=== PATIENT | female | born 1960 | race Caucasian/White ===

== ENCOUNTER 2020-05-06 10:03 | Emergency (ER) | payer BC ==
[~2020-05-06] VITALS: Ht 160 cm; Wt 74.6 kg
[2020-05-06] MEDS ORDERED: SODIUM CHLORIDE 0.9% 1000ML 1,000 ML IV STA ×2 (10:32)
[2020-05-06] MEDS ORDERED: ONDANSETRON HCL INJ 2MG/ML 2ML 2 MG/ML VIAL IV STA (10:32)
[2020-05-06] MEDS ORDERED: SODIUM CHLORIDE FLUSH 10 ML SYR INJ PRN (10:45)
[2020-05-06] MEDS ORDERED: SODIUM CHLORIDE 0.9% 1000ML 2,000 ML ONE (10:49)
--- OUTSIDE RECORDS SUMMARY | 2020-05-06 11:02 | XMS REPORT | Clinical Summary ---
Author Author [facility] Organization [facility] Address Unknown Phone Unavailable Care Team Providers Care Apple Sorter Name Role Phone NicolasaSariah Jarvis PCP Unavailable Allergies Comments Active Allergy Reactions Severity Noted Date Cinnamon GI 12/25/2018 Intolerance Heel pain Ciprofloxacin 09/23/2017 Severe Itching Hydrocodone-Acetaminophen Itching Medium 10/04 fever Nitrofurantoin Other (See High 09/23/2017 Monohyd/M-Cryst Comments) Morphine Hives, 09/23/2017 Itching, GI Intolerance Medications End Date Status Medication Sig Dispensed Refills Start Date Active levothyroxine (SYNTHROID, Take 25 mcg 0 LEVOXYL) 25 mcg tablet by mouth every morning. Pt takes [place] thyroid also Active PROGESTERONE, BULK, MISC Apply 0 topically daily. Testosterone 5mg- Progesterone 25mg/ml cream Active estradiol (VIVELLE-DOT) Place 1 patch 0 0.1 mg/24 hr on the skin 2 (two) times a week. Sat-Tues Active acetaminophen (TYLENOL) Take 650 mg 0 325 MG tablet by mouth every 6 (six) hours as needed for fever. Active dexlansoprazole Take 60 mg by 0 (DEXILANT) 60 mg capsule mouth daily. Active escitalopram (LEXAPRO) 10 Take 10 mg by 0 MG tablet mouth daily. Active mometasone (NASONEX) 50 2 sprays into 0 mcg/actuation nasal spray each nostril daily. Active ondansetron (ZOFRAN) 8 MG Take 8 mg by 0 tablet mouth every 8 (eight) hours as needed for nausea or vomiting. Active metFORMIN XR Take 500 mg 0 (GLUCOPHAGE-XR) 500 mg 24 by mouth hr tablet daily with breakfast. Active thyroid, pork, (ARMOUR Take 1 tablet 0 THYROID) 15 mg tablet by mouth daily. Pt takes levothyroxine also 08/10/2019 Discontinued (Med List Clean up) thyroid, pork, Take 16.25 mg 0 (NATURE-THROID) 16.25 mg by mouth tablet daily. 08/10/2019 Discontinued (Med List Clean up) diclofenac (VOLTAREN) 1 % APPLY 100 g 0 gel TOPICALLY 8 FOUR TIMES DAILY 08/10/2019 Discontinued (Med List Clean up) pantoprazole (PROTONIX) TAKE ONE 90 tablet 0 40 MG EC tablet TABLET BY 9 MOUTH DAILY 08/10/2019 Discontinued (Med List Clean up) metFORMIN (GLUCOPHAGE) Take 500 mg 0 500 mg tablet by mouth 2 (two) times a day with meals. Active Problems Problem Noted Date Chest pain 08/10/2019 Bilateral hip pain 01/01/2018 Spinal stenosis of lumbar region without neurogenic c laudication 11/26/2017 Degenerative tear of left medial meniscus 01/21/2017 Trochanteric bursitis of right hip 01/21/2017 Meniere disease GERD (gastroesophageal reflux disease) Disease of thyroid gland Diabetes mellitus Overview: pre Encounters Care Team Description Date Type Specialty Matt Villegas MD Bavare, MD Aamir Domingo, Bob Torres MD Chest pain, unspecified type (Primary Dx ); Hypertension, unspecified type; Elevated brain natriuretic peptide (BNP) level; Hx of atrial fibrillation, no current medication 08/10/2019 Emergency General Internal [facility] - 08/12/2019 Jay Delacruz DO Atrial fibrillation, unspecified type (H CC) (Primary Dx) 08/09/2019 Emergency Emergency Medicine - 08/10/2019 after 05/06/2019 Family History Medical History Relation Name Comments Cancer Brother kidney Diabetes Brother Atrial fibrillation Father Diabetes Mother Heart disease Mother Cancer Sister kidney Heart disease Sister Relation Name Status Comments Brother Father Alive Mother Sister Alive Social History Date Tobacco Use Types Packs/Day Years Used Never Smoker Smokeless Tobacco: Never Used Drinks/Week oz/Week Comments Alcohol Use social Yes Sex Assigned at Date Recorded Not on file Industry Job Start Date Occupation Not on file Not on file Not on file Travel End Travel History Travel Start No recent travel history available. Last Filed Vital Signs Reading Time Taken Comments Vital Sign 125/61 08/12/2019 11:59 AM FURNITURE DETAILER Blood Pressure 53 08/12/2019 11:59 AM FURNITURE DETAILER Pulse 36.4 C (97.5 F) 08/12/2019 11:59 AM FURNITURE DETAILER Temperature 16 08/12/2019 11:59 AM FURNITURE DETAILER Respiratory Rate 97% 08/12/2019 11:59 AM FURNITURE DETAILER Oxygen Saturation - - Inhaled Oxygen Concentration 87.5 kg (193 lb) 08/10/2019 12:46 PM FURNITURE DETAILER Weight 160 cm (5' 3") 08/10/2019 12:46 PM FURNITURE DETAILER Height 34.19 08/10/2019 12:46 PM FURNITURE DETAILER Body Mass Index Plan of Treatment Health Maintenance Due Date Last Done Comments DIABETIC RETINAL EYE EXAM 1960 DIABETIC FOOT EXAM 1970 URINE MICROALBUMIN 1970 CERVICAL CANCER SCREENING 1981 BREAST CANCER SCREENING 2010 COLONOSCOPY SCREENING 2010 SHINGLES VACCINES (#1) 2010 INFLUENZA VACCINE 06/02/2020 Procedures Comments Procedure Name Priority Date/Time Associated Diag nosis CT ANGIOGRAM PE CHEST STAT 08/12/2019 2:16 PM FURNITURE DETAILER US CAROTID DUPLEX STAT 08/12/2019 BILATERAL 2:00 PM FURNITURE DETAILER POC GLUCOSE Routine 08/12/2019 11:59 AM FURNITURE DETAILER D-DIMER STAT 08/12/2019 10:46 AM FURNITURE DETAILER POC GLUCOSE Routine 08/11/2019 4:03 PM FURNITURE DETAILER POC GLUCOSE Routine 08/11/2019 10:59 AM FURNITURE DETAILER TTE COMPLETE, WO Routine 08/11/2019 CONTRAST, W DOPPLER 8:22 AM FURNITURE DETAILER ([id number]) POC GLUCOSE Routine 08/11/2019 6:36 AM FURNITURE DETAILER HEMOGLOBIN A1C Routine 08/11/2019 5:44 AM FURNITURE DETAILER MAGNESIUM LEVEL Routine 08/11/2019 5:44 AM FURNITURE DETAILER LIPID PANEL Routine 08/11/2019 5:44 AM FURNITURE DETAILER ESTIMATED GFR Routine 08/11/2019 5:44 AM FURNITURE DETAILER BASIC METABOLIC PANEL Routine 08/11/2019 5:44 AM FURNITURE DETAILER HC COMPLETE BLD COUNT Routine 08/11/2019 W/AUTO DIFF 5:44 AM FURNITURE DETAILER B NATRIURETIC PEPTIDE Routine 08/11/2019 5:44 AM FURNITURE DETAILER THYROID STIMULATING Routine 08/11/2019 HORMONE 5:44 AM FURNITURE DETAILER POC GLUCOSE Routine 08/10/2019 9:39 PM FURNITURE DETAILER TROPONIN Timed 08/10/2019 9:12 PM FURNITURE DETAILER POC GLUCOSE Routine 08/10/2019 6:18 PM FURNITURE DETAILER PARTIAL THROMBOPLASTIN STAT 08/10/2019 TIME (PTT) 4:18 PM FURNITURE DETAILER PROTHROMBIN TIME WITH INR STAT 08/10/2019 4:18 PM FURNITURE DETAILER TROPONIN Timed 08/10/2019 3:54 PM FURNITURE DETAILER XR CHEST 2 VW STAT 08/10/2019 2:53 PM FURNITURE DETAILER ECG ED PRELIMINARY Routine 08/10/2019 INTERPRETATION 2:04 PM FURNITURE DETAILER LIPASE LEVEL STAT 08/10/2019 1:59 PM FURNITURE DETAILER ESTIMATED GFR STAT 08/10/2019 1:59 PM FURNITURE DETAILER B NATRIURETIC PEPTIDE STAT 08/10/2019 1:59 PM FURNITURE DETAILER TROPONIN STAT 08/10/2019 1:59 PM FURNITURE DETAILER COMPREHENSIVE METABOLIC STAT 08/10/2019 PANEL 1:59 PM FURNITURE DETAILER HC COMPLETE BLD COUNT STAT 08/10/2019 W/AUTO DIFF 1:59 PM FURNITURE DETAILER ECG 12-LEAD STAT 08/10/2019 12:50 PM FURNITURE DETAILER T3, FREE STAT 08/10/2019 1:15 AM FURNITURE DETAILER TROPONIN Timed 08/10/2019 1:11 AM FURNITURE DETAILER XR CHEST 1 VW PORTABLE STAT 08/09/2019 11:23 PM FURNITURE DETAILER THYROID STIMULATING STAT 08/09/2019 HORMONE 10:37 PM FURNITURE DETAILER T4, FREE STAT 08/09/2019 10:37 PM FURNITURE DETAILER T4 STAT 08/09/2019 10:37 PM FURNITURE DETAILER T3 STAT 08/09/2019 10:37 PM FURNITURE DETAILER ESTIMATED GFR STAT 08/09/2019 10:37 PM FURNITURE DETAILER B NATRIURETIC PEPTIDE STAT 08/09/2019 10:37 PM FURNITURE DETAILER TROPONIN STAT 08/09/2019 10:37 PM FURNITURE DETAILER HC COMPLETE BLD COUNT STAT 08/09/2019 W/AUTO DIFF 10:37 PM FURNITURE DETAILER COMPREHENSIVE METABOLIC STAT 08/09/2019 PANEL 10:37 PM FURNITURE DETAILER ECG 12-LEAD STAT 08/09/2019 10:32 PM FURNITURE DETAILER ECG ED PRELIMINARY Routine 08/09/2019 INTERPRETATION 10:29 PM FURNITURE DETAILER after 05/06/2019 Results * CT Angiogram Pe Chest (08/12/2019 2:16 PM FURNITURE DETAILER) Specimen Narrative Performed At EXAMINATION: [facility] CT ANGIOGRAM PE CHEST CLINICAL HISTORY: elevated d-dimer TECHNIQUE: CT angiographic images of the chest wer e obtained during intravenous administration of iodinated contrast. C omputerized reformatted images and 3-D MIP images were also obtained and archi ilir (CT pulmonary embolus protocol). Approximately 100 cc of Visipaque [address] scan performed using radiation d ose reduction techniques. Technical factors are evaluated and adjusted to e nsure appropriate moderation of exposure. Automated dose management technology is applied to adjust the radiation dose to minimize expose while achieving a diagnostic quality image. COMPARISON: None. FINDINGS: The main pulmonary artery, right pulmon samanta artery and left pulmonary artery as well as their visualized segmental and subsegmental branches demonstrate no evidence of pulmonary embolism. The pul monary arteries are normal in caliber. There is no evidence of aortic aneurysm or dissection. No mediastinum, hilar or axillary patho logic adenopathy is seen. The heart is normal in caliber. No elissa cardial effusion is seen. No consolidation or pleural effusion is seen. There is no evidence of pneumothorax. No pulmonary nodule or ma ss is present. Bilateral renal cysts are noted. Small amount of gallbladder sludge is noted. The image portion of the abdomen viscer a is otherwise unremarkable. IMPRESSION: No CTA evidence of pulmonary embolism. No CTA evidence of aortic aneurysm or d issection. No CT evidence of acute cardiopulmonary process or pneumonia. [id number] Procedure Note Hm Interface, Radiology Results Incoming - 08/12/2019 2:38 PM FURNITURE DETAILER EXAMINATION: CT ANGIOGRAM PE CHEST CLINICAL HISTORY: elevated d-dimer TECHNIQUE: CT angiographic images of the chest were obtained during intravenous administration of iodinated contrast. Computerized reformatted images and 3-D MIP images were also obtained and archived (CT pulmonary embolus protocol). Approximately 100 cc of Visipaque [address] scan performed using radiation dose reduction techniques. Technical factors are evaluated and adjusted to ensure appropriate moderation of exposure. Automated dose management technology is applied to adjust the radiation dose to minimize expose while achieving a diagnostic quality image. COMPARISON: None. FINDINGS: The main pulmonary artery, right pulmonary artery and left pulmonary artery as well as their visualized segmental and subsegmental branches demonstrate no evidence of pulmonary embolism. The pulmonary arteries are normal in caliber. There is no evidence of aortic aneurysm or dissection. No mediastinum, hilar or axillary pathologic adenopathy is seen. The heart is normal in caliber. No pericardial effusion is seen. No consolidation or pleural effusion is seen. There is no evidence of pneumothorax. No pulmonary nodule or mass is present. Bilateral renal cysts are noted. Small amount of gallbladder sludge is noted. The image portion of the abdomen viscera is otherwise unremarkable. IMPRESSION: No CTA evidence of pulmonary embolism. No CTA evidence of aortic aneurysm or dissection. No CT evidence of acute cardiopulmonary process or pneumonia. [id number] Performing Organization Address City/State/Zipcode Ph one Number [facility] [address] [place] [address] * Us carotid duplex (08/12/2019 2:00 PM FURNITURE DETAILER) Specimen Narrative Performed At Examination: US CAROTID DUPLEX BILATERAL [facility] CLINICAL HISTORY: syncope TECHNIQUE: Examination includes full du plex Doppler scan (real-time B mode grayscale, Doppler spectral analysis, D oppler color flow imaging) of the common carotid, internal carotid, external car otid, and vertebral arteries. Velocity parameters are based upon studies using distal internal kim tid artery diameter as a denominator for stenosis calculation. COMPARISON: None. IMPRESSION: 1.Mild bilateral intimal wall thickenin g of the visualized carotid arteries. No hemodynamically significant stenosis wi thin either internal carotid artery, with the peak systolic velocities within the right and left internal carotid arteries measuring 83.6 cm/s and 86.6 cm/s, respectively. The peak systolic velocities within the right and left common carotid arteries measure 95.1 cm/s and 118.8 cm/s, respectively. 2.The right and left vertebral arteries are patent and demonstrate normal antegrade flow. [id number] Procedure Note Interface, Radiology Results Incoming - 08/12/2019 2:10 PM FURNITURE DETAILER Examination: US CAROTID DUPLEX BILATERAL CLINICAL HISTORY: syncope TECHNIQUE: Examination includes full duplex Doppler scan (real-time B mode grayscale, Doppler spectral analysis, Doppler color flow imaging) of the common carotid, internal carotid, external carotid, and vertebral arteries. Velocity parameters are based upon studies using distal internal carotid artery diameter as a denominator for stenosis calculation. COMPARISON: None. IMPRESSION: 1.Mild bilateral intimal wall thickening of the visualized carotid arteries. No hemodynamically significant stenosis within either internal carotid artery, with the peak systolic velocities within the right and left internal carotid arteries measuring 83.6 cm/s and 86.6 cm/s, respectively. T he peak systolic velocities within the right and left common carotid arteries measure 95.1 cm/s and 118.8 cm/s, respectively. 2.The right and left vertebral arteries are patent and demonstrate normal antegrade flow. [facility]-[id number] Performing Organization Address City/State/Zipcode Ph one Number [facility] [address] [place] [address] * POC glucose (08/12/2019 11:59 AM FURNITURE DETAILER) Only the most recent of 6 results within the time period is included. POC glucose 92 65 - 100 mg/dL [facility] Specimen Performing Organization Address City/State/Zipcode Ph one Number [facility] [address] [place] [address]. [place] [address] PATHOLOGY AND GENOMIC MEDICINE [facility] [address] [place] [address] HOSPITAL * D-dimer (08/12/2019 10:46 AM FURNITURE DETAILER) Pathologist [facility] D-dimer 1.01 (H) 0.00 - 0.40 ug/mL [address] [facility] Comment: FEU CATHOLIC Units are ug/ml Fibrinogen [facility]. [facility] When combined with low clinical probability, D-dimer results of less than 0.5 ug/ml FEU have a good negative predictive value in excluding PE or DVT. For D-dimer results greater than 0.5 ug/ml FEU further testing is indicated if PE or DVT is suspected clinically. Elevated D-dimer results have been reported in DVT, PE, and DIC cases and may indicate the presence of a clot. D-dimer results may be elevated due to old age, , inflammatory diseases, trauma, post-operative states, sepsis, and malignancies. Specimen Blood Performing Organization Address City/State/Zipcode Ph one Number [facility] [address] [place] [address] PATHOLOGY AND GENOMIC MEDICINE [facility] [address] * Echocardiogram complete w contrast and 3D if needed (08/11/2019 8:22 AM FURNITURE DETAILER) Velocity Ratio 0.74 m/s [facility] (V1/V2) IVS,d 0.98 cm SYNGO EF 67.75 % [facility] Ascending aorta 3.45 cm [facility] LVPWD,d 0.99 cm [facility] AoV Mean PG 6.00 mmHg [facility] AV LVOT peak 6.37 mmHg HM [facility] gradient MV valve area p 3.43 cm2 [facility] 1/2 method PV Pk Grad 2.69 mmHg [facility] E/A ratio 0.97 [facility] E wave 194.54 msec [facility] decelartion time IVRT 77.07 msec [facility] LVOT Diam,S 2.11 cm [facility] LVOT area 3.49 cm2 [facility] LVOT Vmax 1.27 m/s [facility] LVOT VTI 0.31 m HM [facility] AoV Peak PG 11.62 mmHg [facility] MV Peak E Kofi 0.72 m/s [facility] MV stenosis 64.17 ms HM [facility] pressure 1/2 time MV Peak A Kofi 0.74 m/s [facility] BSA 1.93 m2 [facility] Ao Root 3.00 cm HM [facility] Diameter AoV Area, Vmax 2.58 cm2 [facility] AoV Area, VTI 2.87 cm2 [facility] AoV Vmax 1.71 m/s [facility] BSA [place] 2.06 m2 [facility] BSA [place] 2.04 m2 [facility] IVS/LVPW,2D 0.99 [facility] Left Atrium 4.66 cm [facility] Dimension Anterior LV,d 5.09 cm HM [facility] LV,s 3.16 cm [facility] PV VMAX 0.82 m/s [facility] RVSP (TR) 43.02 mmHg [facility] TR Vpeak 2.87 mm/s [facility] BMI 35.07 kg/m2 [facility] MV E A ratio 0.93 [facility] TR pk grad 31.89 mmHg HM [facility] AoV area i VTI 1.49 cm2/m2 [facility] BSA [place] RVSP 43.02 mmHg HM [facility] Ao Root 3.00 cm [facility] Diameter LV SYS VOL 39.73 ml [facility] LV STUBBS VOL 123.18 ml [facility] LA area s A4C 23.02 cm2 [facility] LA Vol MOD A4C 75.26 ml [facility] LV SI Teich 2D 43.34 ml/m2 [facility] LV SV Teich 2D 83.45 ml [facility] LV Vol s Teich 39.73 ml [facility] PSAX LVOT SI 56.99 ml/m2 [facility] AoV Vmn 1.14 [facility] IVS s 2D 1.50 [facility] LV FS Cube 2D 37.90 [facility] LV FS Teich 2D 37.90 [facility] AoV VTI 0.39 m [facility] LV EF,2D 76.06 % [facility] MV AE ratio 1.08 [facility] LVOT Vmn 0.90 [facility] Pt Size 160.02 [facility] Pt Wt 89.81 [facility] Aov area Vmn 2.86 cm2 [facility] LA A_P score P 3.10 [facility] LVOT mean grad 3.69 mmHg [facility] MAX Pred HR 161.26 [facility] 85 of MPHR 137.07 HM [facility] AoV area I VMN 1.49 cm2/m2 [facility] bsa Calc MPHR 161.26 bpm [facility] IVS pct thck 53.70 % [facility] PLAX LV SI Cube 2D 52.05 ml/m2 [facility] LV SV Cube 2D 100.22 ml [facility] LV vol d cube 131.78 ml [facility] 2D LV vol s cube 31.55 ml [facility] 2D LVPW pct thck 41.63 % [facility] PLAX LVPW s PLAX 1.40 cm [facility] MV Decel slope 3.69 m/s2 [facility] Pred Exer Dur 8.04 [facility] R1 Pred METS R1 7.06 [facility] Specimen Narrative Performed At [facility] Left ventricular systolic function i s normal. Left Ventricular ejection fraction i s 55 - 60%. Left atrium size is mildly dilated. Mildly elevated pulmonary artery sys tolic pressure. RSVP 43 Performing Organization Address City/[facility] Ph one Number [facility] [address] [place] [address], * Estimated GFR (08/11/2019 5:44 AM FURNITURE DETAILER) Only the most recent of 3 results within the time period is included. Estimated GFR 62 mL/min/1.[address] Comment: CATHOLIC Catergory Units [facility]ation [facility] G1 >=90 Normal or high G2 60-89 Mildly decreased G3a 45-59 Mildly to moderately decreased G3b 30-44 Moderately to severely decreased G4 15-29 Severely decreased G5 <15 Kidney failure The eGFR was calculated using the Chronic Kidney Disease Epidemiology Collaboration (CKD-EPI) equation. Interpretation is based on recommendations of the National Kidney Foundation-Kidney Disease Outcomes Quality Initiative (NKF-KDOQI) published in 2014. Specimen Plasma specimen Performing Organization Address City/[facility] Ph one Number [facility] [address] [place] [address] PATHOLOGY AND GENOMIC MEDICINE [facility] [address] [place] [address] HOSPITAL * CBC with platelet and differential (08/11/2019 5:44 AM FURNITURE DETAILER) Only the most recent of 3 results within the time period is included. WBC 4.1 (L) 4.2 - 11.0 k/uL [facility] RBC 3.40 (L) 4.04 - 5.86 m/uL [facility] HGB 11.0 (L) 11.5 - 15.3 g/dL [facility] HCT 33.5 (L) 34.0 - 45.0 % [facility] MCV 98.5 (H) 80.0 - 98.0 fL [facility] MCH 32.4 27.0 - 34.0 pg [facility] MCHC 32.8 31.5 - 36.5 g/dL [facility] RDW - SD 45.9 37.0 - 51.0 fL [facility] MPV 11.3 (H) 7.4 - 10.4 fL [facility] Platelet count 195 150 - 400 k/uL [facility] Nucleated RBC 0.00 /100 WBC [facility] Neutrophils 62.6 36.0 - 66.0 % [facility] Lymphocytes 25.6 24.0 - 44.0 % [facility] Monocytes 10.1 (H) 0.0 - 6.0 % [facility] Eosinophils 1.0 0.0 - 6.0 % [facility] Basophils 0.5 0.0 - 1.2 % [facility] Immature 0.2 0.0 - 1.0 % [address] granulocytes [facility] Specimen Blood Performing Organization Address City/State/[facility] Ph one Number [address] [place] [address] PATHOLOGY AND GENOMIC MEDICINE [address] [place] [address] HOSPITAL * Thyroid stimulating hormone (08/11/2019 5:44 AM FURNITURE DETAILER) Only the most recent of 2 results within the time period is included. TSH 1.03 0.27 - 4.20 uIU/mL [facility] Specimen Plasma specimen Performing Organization Address City/State/Zipcode Ph one Number [facility] [address] [place] [address] PATHOLOGY AND GENOMIC MEDICINE [facility] [address] [place] [address] * B natriuretic peptide (08/11/2019 5:44 AM FURNITURE DETAILER) Only the most recent of 3 results within the time period is included. BNP 144 (H) 0 - 100 pg/mL [facility] Specimen Blood Performing Organization Address City/[facility] Ph one Number [facility] [place] [address] PATHOLOGY AND GENOMIC MEDICINE [address] * Magnesium level (08/11/2019 5:44 AM FURNITURE DETAILER) Magnesium 2.00 1.60 - 2.60 mg/dL [facility] Specimen Plasma specimen Performing Organization Address [facility] Ph one Number [facility] [place] [address] PATHOLOGY AND GENOMIC MEDICINE [address] * Hemoglobin A1c (08/11/2019 5:44 AM FURNITURE DETAILER) Hemoglobin A1C 5.6 4.0 - 5.6 % [address] Comment: CATHOLIC HbA1c cutoffs for diagnosing [facility] diabetes: HOSPITAL 4.0% - 5.6% = normal 5.7% - 6.4% = increased risk for diabetes (prediabetes)9 >=6.5% = diabetes9 Goals for glycemic control (ADA 2016) < 7.0% Target for non adults with diabetes. More or less stringent targets may be appropriate for individual patients. <7.5% Target for Children and adolescents with type 1 diabetes. Specimen Blood Performing Organization Address City/[facility] Ph one Number [facility] [place] [address] PATHOLOGY AND GENOMIC MEDICINE [address] * Lipid panel (08/11/2019 5:44 AM FURNITURE DETAILER) Cholesterol 168 0 - 199 mg/dL [facility] Triglycerides 56 0 - 149 mg/dL [facility] HDL cholesterol 68 40 - 9,999 mg/dL [facility] LDL cholesterol 103 (H)Comment: Result 0 - 99 mg/dL DARSHAN Sharma obtained by direct LDL CATHOLIC measurement [facility] Lipid panel See below [address] interpretation Comment: CATHOLIC Total Cholesterol (mg/dL) [facility] LDL Cholesterol HOSPITAL (mg/dL) <200 Desirable <100 Optimal 200-239 Borderline-high 100-129 Near or above optimal >=240 High 130-159 Borderline-high 160-189 High >=190 Very high HDL Cholesterol (mg/dL) Triglycerides (mg/dL) <40 Low <150 Normal >=60 High 150-199 Borderline-high 200-499 High >=500 Very high Risk Catergories that modify LDL goals. Risk Catergories LDL goal (mg/dL) CHD and CHD risk equivalent <100 (10-year risk >20%) Multiple (2+) risk factors <130 (10-year risk =<20%) 0-1 risk factors <160 (<10-year risk) Defining levels of lipids in metabolic syndrome Triglycerides >=150 mg/dL HDL Cholesterol Men <40 mg/dL Women <50 mg/dL Non-HDL cholesterol is a second target for therapy in persons with high triglycerides (>=200 mg/dL) Specimen Plasma specimen Performing Organization Address City/State/[facility] Ph one Number [facility] [address] [place] [address] PATHOLOGY AND GENOMIC MEDICINE [facility] [address] * Basic metabolic panel (08/11/2019 5:44 AM FURNITURE DETAILER) Sodium 141 135 - 150 mEq/L [facility] Potassium 3.8 3.5 - 5.0 mEq/L [facility] Chloride 108 98 - 112 mEq/L [facility] CO2 22 (L) 24 - 31 mmol/L [facility] Anion gap 11@ANIO 7 - 15 mEq/L [facility] BUN 22 (H) 7 - 18 mg/dL [facility] Creatinine 1.00 (H) 0.50 - 0.90 mg/dL [facility] Glucose 105 (H) 65 - 100 mg/dL [facility] Calcium 8.7 8.3 - 10.2 mg/dL [facility] Specimen Plasma specimen Performing Organization Address City/[facility] Ph one Number [facility] [place] [address] [place] [address] PATHOLOGY AND GENOMIC MEDICINE [address] * Troponin (08/10/2019 9:12 PM FURNITURE DETAILER) Only the most recent of 5 results within the time period is included. Pathologist [facility] Troponin 0.009 0.000 - 0.040 ng/mL [address] [facility] Comment: [facility] effective: [facility]ITAL 01/06/2019 at 10:00 am The new method has a 99th percentile cutoff of 0.040 ng/mL Specimen Plasma specimen Performing Organization Address [facility] Ph one Number [facility] OF [address] [place] [address] PATHOLOGY AND [facility] MEDICINE [address] * Partial thromboplastin time, activated (08/10/2019 4:18 PM FURNITURE DETAILER) [facility] PTT 26.8 23.0 - 36.[address] [place] Comment: CATHOLIC PTT therapeutic range for [place] unfractionated heparin is HOSPITAL 61.0-112.0 seconds which corresponds to Anti-Xa 0.3-0.7 U/ml. Specimen Blood Performing Organization Address City/[facility] Ph one Number [facility] [place] [place] [address] [place] [address] PATHOLOGY AND [facility] MEDICINE [facility] [address] [place] [address] * Prothrombin time with INR (08/10/2019 4:18 PM FURNITURE DETAILER) Pathologist [facility] Prothrombin 13.3 11.5 - 14.[address] [place] time [facility] INR 1.[address] [place] Comment: CATHOLIC For patients on anticoagulant [place] therapy, reference ranges HOSPITAL below: Indication: INR Value Treatment of Venous Thrombosis, 2.0-3.0 pulmonary emboli, or prophylaxis of a venous thrombosis, or systemic emboli. High dose, high risk patients 3.0-4.5 with mechanical valves. NOTE: INR values over 3.0 are sometimes associated with gastrointestinal hemorrhage, especially values over 4.0. Specimen Blood Performing Organization Address [facility] Ph one Number [facility] [place] [address] [place] [address] PATHOLOGY AND GENOMIC MEDICINE [facility] [address] [place] [address] HOSPITAL * XR Chest 2 Vw (08/10/2019 2:53 PM FURNITURE DETAILER) Specimen Narrative Performed At EXAMINATION: XR CHEST 2 VW [facility] CLINICAL HISTORY: Chest pain normal e kg COMPARISON: August 09, 2019. FINDINGS: 1. The lungs are clear without a focal consolidation. There is no pleural effusion or pneumothorax. 2. The cardiomediastinal silhouette kirill roaches the upper limit of normal for size. The pulmonary vascularity is with in normal limits. 3. Multilevel mild thoracic spondylosis . Mild bilateral AC joint osteoarthritis. IMPRESSION: No acute cardiopulmonary abnormality. [facility]-[id number] Procedure Note Hm Interface, Radiology Results Incoming - 08/10/2019 2:58 PM FURNITURE DETAILER EXAMINATION: XR CHEST 2 VW CLINICAL HISTORY: Chest pain normal ekg COMPARISON: August 09, 2019. FINDINGS: 1. The lungs are clear without a focal c onsolidation. There is no pleural effusion or pneumothorax. 2. The cardiomediastinal silhouette appr oaches the upper limit of normal for size. The pulmonary vascularity is within normal limits. 3. Multilevel mild thoracic spondylosis. Mild bilateral AC joint osteoarthritis. IMPRESSION: No acute cardiopulmonary abnormality. [facility]-[id number] Performing Organization Address [facility] Ph one Number [facility] [address] [place] [address] * ECG ED Preliminary Interpretation - Not an Order (08/10/2019 2:04 PM FURNITURE DETAILER) Only the most recent of 2 results within the time period is included. Narrative Performed At Matt Villegas MD 08/10/2019 5 :17 PM ECG ED Preliminary Interpretation - Not an Order Performed by: Matt Villegas MD Authorized by: Matt Villegas MD ECG reviewed by ED Physician in the abs ence of a cutter v groove: yes Interpretation: Interpretation: abnormal Rate: ECG rate: 54 ECG rate assessment: bradycardic Rhythm: Rhythm: sinus bradycardia Ectopy: Ectopy: none QRS: QRS axis: Normal QRS intervals: Normal Conduction: Conduction: normal T waves: T waves: non-specific Other findings: Other findings comment: Low voltage * Lipase level (08/10/2019 1:59 PM FURNITURE DETAILER) Lipase 43 13 - 60 U/L [facility] Specimen Plasma specimen Performing Organization Address City/State[facility] Ph one Number [facility] [place] [place] [address] [place] [address] PATHOLOGY AND GENOMIC MEDICINE [address] * Comprehensive metabolic panel (08/10/2019 1:59 PM FURNITURE DETAILER) Only the most recent of 2 results within the time period is included. Sodium 142 135 - 150 mEq/L [facility] Potassium 4.4 3.5 - 5.0 mEq/L [facility] Chloride 107 98 - 112 mEq/L [facility] CO2 24 24 - 31 mmol/L [facility] Anion gap 11@ANIO 7 - 15 mEq/L [facility] BUN 20 (H) 7 - 18 mg/dL [facility] Creatinine 1.00 (H) 0.50 - 0.90 mg/dL [facility] Glucose 99 65 - 100 mg/dL [facility] Calcium 8.9 8.3 - 10.2 mg/dL [facility] Protein 7.1 6.3 - 8.3 g/dL [facility] Albumin 3.8 3.5 - 5.0 g/dL [facility] A/G ratio 1.2 0.7 - 3.8 [facility] Alkaline 81 0 - 104 U/L [address] phosphatase [facility] AST 19 10 - 35 U/L [facility] ALT 11 5 - 50 U/L [facility] Total bilirubin 0.6 0.2 - 1.2 mg/dL [facility] Specimen Plasma specimen Performing Organization Address [facility] Ph one Number [facility] [address] [place] [address] PATHOLOGY AND GENOMIC MEDICINE [facility] [address] [place] [address] HOSPITAL * ECG 12 lead (08/10/2019 12:50 PM FURNITURE DETAILER) Only the most recent of 2 results within the time period is included. Ventricular 54 [facility] rate Atrial rate 54 [facility] ID interval 136 [facility] QRSD interval 88 [facility] QT interval 470 [facility] QTC interval 445 [facility] P axis 1 43 [facility] QRS axis 1 -1 [facility] T wave axis 40 [facility] EKG impression Sinus bradycardia-Low voltage [facility] E QRS-Cannot rule out Anterior infarct , age undetermined-Abnormal ECG-In automated comparison with ECG of 09-AUG-2019 22:32,-Minimal criteria for Anterior infarct are now present-Electronically Signed By Reese Meraz MDjefferson comprehensive health centermarques ([id number]) on 08/17/2019 2:31:42 PM Specimen Narrative Performed At This result has an attachment that is n ot available. Performing Organization Address [facility] one Number [facility] MUSE [address] [place] [address] * T3, free (08/10/2019 1:15 AM FURNITURE DETAILER) T3, free 2.6 2.4 - 4.2 pg/mL [facility] REF LA B Comment: REFERENCE INTERVAL: Triiodothyronine, Free (Free T3) Access complete set of age- and/or gender-specific reference intervals for this test in the [facility] Test Directory ([place]). Performed by [email or web address], [address] [place] [address] [email or web address], Juan Miguel Chavez MD, Lab. Director Specimen Serum Performing Organization Address [facility] Ph one Number [facility] [address] [place] [address] [facility] [address] [place] [address] * XR Chest 1 Vw Portable (08/09/2019 11:23 PM FURNITURE DETAILER) Specimen Narrative Performed At Examination: XR CHEST 1 VW PORTABLE [facility] Clinical History: SOB Comparison: None. Technique: Single frontal view of the c hest is obtained. Findings: The lungs are free of infiltrate. The heart size is normal. No pleural effusion is seen. Impression: No active cardiopulmonary disease ident ified. [facility]-[id number] Procedure Note Hm Interface, Radiology Results Incoming - 08/09/2019 11:59 PM FURNITURE DETAILER Examination: XR CHEST 1 VW PORTABLE Clinical History: SOB Comparison: None. Technique: Single frontal view of the chest is obtained. Findings: The lungs are free of infiltrate. The heart size is normal. No pleural effusion is seen. Impression: No active cardiopulmonary disease identified. [facility]-[id number] Performing Organization Address City/State/[facility] Ph one Number [facility] [address] [place] [address] * T3 (08/09/2019 10:37 PM FURNITURE DETAILER) T3 77 (L) 80 - 200 ng/dL [facility] Specimen Plasma specimen Performing Organization Address [facility] Ph one Number [facility] DEPARTMENT OF [address] [place] [address] PATHOLOGY [place] [address] HOSPITAL * T4, free (08/09/2019 10:37 PM FURNITURE DETAILER) T4, free 1.20 0.90 - 1.70 ng/dL [facility] Specimen Plasma specimen Performing Organization Address City[facility] Ph one Number [facility] [address] [place] [address] PATHOLOGY AND GENOMIC MEDICINE [facility] [address] [facility] [place] [address] HOSPITAL * T4 (08/09/2019 10:37 PM FURNITURE DETAILER) T4 5.8 4.5 - 11.7 ug/dL [facility] Specimen Plasma specimen Performing Organization Address City[facility] Ph one Number [facility] DEPARTMENT OF [address] [place] [address] PATHOLOGY [place] [address] HOSPITAL after 05/06/2019 Insurance Type Payer Benefit Subscriber ID Effective Phone Address Plan / Dates Group PPO BCBS BCBS OUT xxxxxxxxxxxxxxx 2017-P OF STATE resent Advance Directives For more information, please contact: [phone] Patient Field Broomer Explanation Type Date Recorded Advance Directives, 08/09/2019 11:00 PM Living Will and Medical Power of [employer] Learning Support Teacher
--- OUTSIDE RECORDS SUMMARY | 2020-05-06 11:02 | XMS REPORT | Clinical Summary ---
Author Author SONI Akredo [facility] Address Unknown Phone Unavailable Care Team Providers Care Durability Engineer Name Role Phone Pcp, No PCP Unavailable Allergies Comments Active Allergy Reactions Severity Noted Date Heel pain achilles pain Heel pain achilles pain Ciprofloxacin Other (See 02/20/2016 Comments) Morphine Itching High 07/08/2013 fever Nitrofurantoin Other (See High 09/23/2017 Monohyd/M-Cryst Comments) Hydrocodone-Acetaminophen Itching High 01/2013 Medications End Date Status Medication Sig Dispensed Refills Start Date Active metFORMIN (GLUCOPHAGE) Take 500 mg 0 500 MG tablet by mouth daily with breakfast. Active thyroid, pork, (ARMOUR) Take by mouth 0 15 mg Tab tablet daily. Active levothyroxine (SYNTHROID, Take 25 mcg 0 LEVOTHROID) 25 MCG tablet by mouth Every morning on an empty stomach. Active escitalopram oxalate Take 20 mg by 0 (LEXAPRO) 20 MG tablet mouth daily. Active dexlansoprazole 60 mg Take 60 mg by 0 capsule mouth daily. 09/22/2019 Discontinued wax-min oil-stearic ac, Apply 0 bulk, (TRANS D HORMONE topically. BASE) Crea Active Problems Problem Noted Date Dizziness 07/10/2013 Nausea & vomiting 07/10/2013 Palpitations 07/10/2013 Diaphoresis 07/10/2013 Malaise and fatigue 07/10/2013 Irregular heartbeat 07/10/2013 Near syncope 07/10/2013 Headache 07/10/2013 Chest pain, atypical 07/10/2013 Chest pain 07/08/2013 Encounters Care Team Description Date Type Specialty Anselmo Soares MD Gastroesophageal reflux disease, esophag itis presence not specified; Hypothyroidism, unspecified type; Anxiety; Fatigue, unspecified type; Atrial fibrillation, unspecified type (HCC); ALIS (obstructive sleep apnea) 10/20/2019 Hospital Encounter Martín Cheng MD 09/25/2019 Hospital Gastroenterology Encounter Martín Cheng MD REMOVAL,48HR PH MATHEW CAPSULE 09/25/2019 Surgery Gastroenterology Nancy Herrera CRNA 09/23/2019 Anesthesia Gastroenterology Event Martín Cheng MD ENDOSCOPY,CAPSULE PH MONITORING 09/23/2019 Surgery Gastroenterology Martín Cheng MD 09/23/2019 Hospital Gastroenterology Encounter Lavern Nicole Fatigue, unspecified type (Primary Dx); Atrial fibrillation, transient (HCC) 09/23/2019 Outside Orders 09/22/2019 Hospital Pre-Admission Testi ng Encounter Rosalba Velazquez, ASSET RECOVERY SPECIALIST, SUPERINTENDENT TRANSMISSION Gastroesophageal reflux disease, esophag itis presence not specified (Primary Dx); Hypothyroidism, unspecified type; Anxiety; Fatigue, unspecified type; Atrial fibrillation, unspecified type (HCC) 09/04/2019 Outside Orders after 05/06/2019 Social History Date Tobacco Use Types Packs/Day Years Used Never Smoker Smokeless Tobacco: Never Used Alcohol Use Drinks/Week oz/Week Comments Yes rare Sex Assigned at Date Recorded Not on file Industry Job Start Date Occupation Not on file Not on file Not on file Travel End Travel History Travel Start No recent travel history available. Last Filed Vital Signs Time Taken Vital Sign Reading 09/23/2019 12:31 PM SPECTACLE TRUER Blood Pressure 123/70 09/23/2019 12:31 PM SPECTACLE TRUER Pulse 55 09/23/2019 12:31 PM SPECTACLE TRUER Temperature 36.7 C (98 F) 09/23/2019 12:31 PM SPECTACLE TRUER Respiratory Rate 16 09/23/2019 12:31 PM SPECTACLE TRUER Oxygen Saturation 98% - Inhaled Oxygen - Concentration 09/23/2019 9:36 AM SPECTACLE TRUER Weight 85.9 kg (189 lb 4.8 oz) 09/23/2019 9:36 AM SPECTACLE TRUER Height 160 cm (5' 3") 09/23/2019 9:36 AM SPECTACLE TRUER Body Mass Index 33.53 Plan of Treatment Health Maintenance Due Date Last Done Comments BREAST CANCER SCREENING 1960 CERVICAL CANCER SCREENING 1981 PAP ONLY (Age 21-65) INFLUENZA VACCINE (#1) 2020 COLON CANCER SCREENING 09/23/2029 09/23/2019 COLONOSCOPY Procedures Comments Procedure Name Priority Date/Time Associated Diag nosis POLYSOMNOGRAPHY REPORT - 11/18/2019 SCAN 11:13 AM CDT UNATTENDED SLEEP STUDY Routine 10/20/2019 Gastroe sophageal reflux W/ANALYSIS 1:42 PM SPECTACLE TRUER disease, esophagiti s presence not specified Hypothyroidism, unspecified type Anxiety Fatigue, unspecified type Atrial fibrillation, unspecified type (HCC) REPORT OF PROCEDURE - 09/23/2019 ENDOSCOPY URL 11:21 AM SPECTACLE TRUER REPORT OF PROCEDURE - 09/23/2019 ENDOSCOPY URL 11:11 AM SPECTACLE TRUER TISSUE EXAM AP Routine 09/23/2019 11:04 AM SPECTACLE TRUER POCT-GLUCOSE METER Routine 09/23/2019 10:14 AM SPECTACLE TRUER COLONOSCOPY,POLYPECTOMY 09/23/2019 Gastroesophag eal reflux 10:00 AM SPECTACLE TRUER disease, esophagitis presence not specified Colon cancer screening UPPER ENDOSCOPY,BIOPSY 09/23/2019 Gastroesophage al reflux 10:00 AM SPECTACLE TRUER disease, esophagitis presence not specified Colon cancer screening ENDOSCOPY,CAPSULE PH 09/23/2019 Gastroesophageal reflux MONITORING 10:00 AM SPECTACLE TRUER disease, esophagiti s presence not specified Colon cancer screening after 05/06/2019 Results * POLYSOMNOGRAPHY REPORT - SCAN (11/18/2019 11:13 AM CDT) Narrative Performed At This result has an attachment that is n ot available. * REPORT OF PROCEDURE - ENDOSCOPY URL (09/23/2019 11:21 AM SPECTACLE TRUER) Narrative Performed At This result has an attachment that is n ot available. * REPORT OF PROCEDURE - ENDOSCOPY URL (09/23/2019 11:11 AM SPECTACLE TRUER) Narrative Performed At This result has an attachment that is n ot available. * Tissue Exam (09/23/2019 11:04 AM SPECTACLE TRUER) Case Report Surgical Pathology [facility] TH Report [facility] Case: [id number] Authorizing Provider:Martín Cheng MDCollected: 09/23/2019 1104 Ordering Location: [facility] Endoscopy Received: 09/23/2019 1450 Services Pathologist: Sukumar Whyte MD Specimens: A) - Polyp, Colon - Sigmoid, Sigmoid Colon Polyp with Cold Snare B) - Biopsy, Gastroesophageal Junction, GE Junction Bx DIAGNOSIS A. COLON, SIGMOID POLYP, [facility] BIOPSY: [facility] - COLONIC MUCOSA WITH NO SIGNIFICANT DIAGNOSTIC ABNORMALITY - NEGATIVE FOR DYSPLASIA/ MALIGNANCY B. GASTROESOPHAGEAL JUNCTION, BIOPSY: - JUNCTIONAL MUCOSA WITH REFLUX ESOPHAGITIS - NEGATIVE FOR INTESTINAL METAPLASIA/ PATHAK'S ESOPHAGUS - NEGATIVE FOR DYSPLASIA/ MALIGNANCY Signing Pathologist Direct Phone Line: [phone] CPT Code(s) 29797L0 [facility] HEALT H [facility] CLINICAL HISTORY Gastroesophageal reflux [facility] disease, colon cancer [facility] screening SPECIMEN SOURCE A. Sigmoid colon polyp. B. GE [facility] junction biopsy [facility] GROSS DESCRIPTION The case is received in two [facility] parts labeled with the [facility] patient's name and accession number. A. Received in formalin labeled "sigmoid colon polyp" is a 0.4 x 0.3 x 0.2 cm, sessile, wall-pink, polypoid tissue, which is submitted in toto in cassette A1. B. Received in formalin labeled "gastroesophageal junction biopsy" are two wall-pink irregular tissues each measuring 0.3 cm in greatest dimension, which are submitted in toto in cassette B1. MW/ew MICROSCOPIC DESCRIPTION Performed. [facility] Specimen Tissue - Polyp, Colon - Sigmoid Tissue - Biopsy, Gastroesophageal Junction Performing Organization Address [facility] Ph one Number [phone] [place] [address] * POC-Glucose meter (09/23/2019 10:14 AM SPECTACLE TRUER) POC-Glucose Meter 77Comment: : TESTED AT [facility] 70 - 110 mg/dL [address] [address]: Walking Dragline Oiler/Deaf/Hard Of Hearing Specialist ID = [id number] for JAMES, MICHAELA Specimen Blood Performing Organization Address City/[facility] Ph one Number [address] [facility] after 05/06/2019 Insurance Payer Benefit Subscriber ID Type Phone Address Plan / Group BLUE CROSS/BLUE SHIELD BC OS xxxxxxxxxxxxxxx PPO [address] POS/PPO/[place] [address] O -4019 Advance Directives For more information, please contact: [facility] [address], [place] [address] Date Inactivated Comments Code Status Date Activated 07/11/2013 12:41 PM All possible means of suppor t, including: cardiac massage, mechanical ventilation, and defibrillation will be used to support life. Code ONE 07/08/2013 10:12 PM
--- OUTSIDE RECORDS SUMMARY | 2020-05-06 11:03 | XMS REPORT | Continuity of Care Document ---
Author Author [facility] t Organization [facility] t Address [address] [place] [address] Phone Unavailable Care Team Providers Care Work Over Rig Operator Name Role Phone Pcp, No PCP Unavailable Elise AMBRIZ, Cathy Attphys Nicolasa PA-C, Brandi Morales Attphys [phone] Sheikh PB, Anselmo Kincaid Attphys Rosetta AMBRIZ, Angel Rooney Attphys Rodger AMBRIZ, Anselmo Attphys Prosper AMBRIZ, María Resendiz Attphys MARÍA CHENGPESH Attphys Unavailable Sharon Dell BEJARANO Attphys Nicole Puckett Attphys Unavailable Caroline PRO SHOP ATTENDANT, CAD DEVELOPER, M Rosalba Attphys Unavailable Bakari AMBRIZ, Pio Gutierrez Attphys Michael AMBRIZ, Denisse Waite Attphys Aamir AMBRIZ, Sada Rojas Attphys [phone] Carina Anaya DO Attphys [phone] MARÍA CHENG Admphys Unavailable MARIANN RODRIGUEZ Admphys Unavailable Payers Payer Name Policy Type Policy Number Effective Date Expiration Date Kareem kellogg BLUE CROSS/BLUE SHIELDBCBS OS POS/PPO/EP [id number] [address] xxxxxxxxxxxxxxx [facility] BCBSBCBS OUT OF STATExxxxxxxxxxxxxxx2017-PresentPPO xxxxxxxxxxxxxxx 2017 00:00:00 Arturo Hernandez Problems Condition Name Condition Details Condition Category Status Onset Date Resolution Date Last Treatment Date Treating Clinician Comments Source Chest pain Chest pain Disease Active 2019-08-10 00:00:00 Arturo Hernandez Bilateral hip pain Bilateral hip pain Disease Active 2018-01-01 00:00:0 0 Arturo Hernandez Spinal stenosis of lumbar region without neurogenic cl audication Spinal stenosis of lumbar region without neurogenic claudication Disease Active 2017-11-26 00:00:[address] Degenerative tear of left medial meniscus Degenerative tear of left medial meniscus Disease Active 2017-01-21 00:00:00 Donald Hernandez Trochanteric bursitis of right hip Trochanteric bursitis of righ t hip Disease Active 2017-01-21 00:00:00 Houskarl ontiveros Jew Dizziness Dizziness Disease Active 2013-07-10 00:00:00 [facility] Nausea & vomiting Nausea & vomiting Disease Active 2013-07-10 00:00:00 [facility] Palpitations Palpitations Disease Active 2013-07-10 00:00:00 [facility] Diaphoresis Diaphoresis Disease Active 2013-07-10 00:00:00 [facility] Malaise and fatigue Malaise and fatigue Disease Active 2013-07-10 00:00 :00 [facility] Irregular heartbeat Irregular heartbeat Disease Active 2013-07-10 00:00 :00 [facility] Near syncope Near syncope Disease Active 2013-07-10 00:00:00 [facility] Headache Headache Disease Active 2013-07-10 00:00:00 [facility] Chest pain, atypical Chest pain, atypical Disease Active 00:00:00 [facility] Chest pain Chest pain Disease Active 2013-07-08 00:00:00 [facility] Meniere disease Meniere disease Disease Active [facility] GERD (gastroesophageal reflux disease) GERD (gastroesophagea l reflux disease) Disease Active [facility] thodist Disease of thyroid gland Disease of thyroid gland Disease Active [facility] Diabetes mellitus Diabetes mellitus Disease Active Overview: pre [facility] Allergies, Adverse Reactions, Alerts Allergy Name Allergy Type Status Severity Reaction(s) Onset Date Inacti ve Date Treating Clinician Comments Source morphine DA Active SV 2020-05-02 00:00:00 [facility] hydrocodone DA Active U 2020-05-02 00:00:00 [facility] acetaminophen DA Active U 2020-05-02 00:00:00 [facility] nitrofurantoin DA Active SV 2020-05-02 00:00:00 [facility] ciprofloxacin DA Active U 2020-05-02 00:00:00 [facility] levofloxacin DA Active U 2020-05-02 00:00:00 [facility] morphine DA Active SV 2020-02-17 00:00:00 [facility] ciprofloxacin DA Active U 2019-12-31 00:00:00 [facility] levofloxacin DA Active U 2019-12-31 00:00:00 [facility] nitrofurantoin DA Active SV 2019-12-25 00:00:00 [facility] Cinnamon Propensity to adverse reactions to drug Active GI Intolerance 2018-12-25 00:00:00 [place] [facility] Nitrofurantoin Monohyd/M-Cryst Propensity to adverse reactions Acti ve Other (See Comments) 2017-09-23 00:00:00 fever [facility] Ciprofloxacin Propensity to adverse reactions to drug Active 2017-09-23 00:00:00 Heel pain [facility] Nitrofurantoin Monohyd/M-Cryst Propensity to adverse reactions to d rug Active Other (See Comments) 2017-09-23 00:00:00 fever [facility] Morphine Propensity to adverse reactions to drug Active Hives, Itching, GI Intolerance 2017-09-23 00:00:00 Arturo Hernandez Ciprofloxacin Propensity to adverse reactions Active O ther (See Comments) 2016-02-20 00:00:00 Heel painachilles pain Heel painachilles pain [facility] Morphine Drug Allergy Active Itching 2013-07-08 00:00:00 [facility] Hydrocodone-Acetaminophen Drug Allergy Active Itching 6 00:00:00 [facility] Hydrocodone-Acetaminophen Propensity to adverse reactions to drug A ctive Itching 2011-10-23 00:00:00 Severe Itching Amy Hernandez Family History Family Member Diagnosis Comments Start Date Stop Date Source Natural brother Cancer [facility] ethodist Natural brother Diabetes [facility] ethodist Natural father Atrial fibrillation H pedro Hernandez Natural mother Diabetes [facility] thodist Natural mother Heart disease Arturo Hernandez Natural sister Cancer [facility] thodist Natural sister Heart disease Arturo Hernandez Social History Social Habit Start Date Stop Date Quantity Comments Source Sex Assigned At Donald canoshelby Hernandez Alcohol intake 2019-08-12 00:00:00 2019-08-12 00:00:00 Current drinker of alcohol (finding) Arturo Hernandez Alcohol Comment 2017-09-23 00:00:00 2017-09-23 00:00:00 social Arturo Hernandez Smoking Status Start Date Stop Date Source Never smoker Arturo barajas Medications Ordered Medication Name Filled Medication Name Start Date Stop Da te Current Medication? Ordering Clinician Indication Dosage Frequency Signature (SIG) Comments Components Source wax-min oil-stearic ac, bulk, (TRANS D HORMONE BASE) Crea 2019-09-22 12:38:37 2019-09-22 00:00:00 No Apply topically. [facility] metFORMIN (GLUCOPHAGE) 500 MG tablet 2019-09-22 12:28:48 Ye s 500mg Take 500 mg by mouth daily with breakfast. [facility] thyroid, pork, (ARMOUR) 15 mg Tab tablet 2019-09-22 12:28:48 Yes QD Take by mouth daily. [facility] levothyroxine (SYNTHROID, LEVOTHROID) 25 MCG tablet 09-22 12:28:48 Yes 25ug Take 25 mcg by mouth Every morning on an empty stomach. [facility] escitalopram oxalate (LEXAPRO) 20 MG tablet 2019-09-22 12:28:48 Yes 20mg QD Take 20 mg by mouth daily. [facility] dexlansoprazole 60 mg capsule 2019-09-22 12:28:48 Yes 60mg QD Take 60 mg by mouth daily. [facility] levothyroxine (SYNTHROID, LEVOXYL) 25 mcg tablet 2019-08-12 16:56:39 Yes 25ug QD Take 25 mcg by mouth every morning. Pt takes Ar mour thyroid also Arturo Hernandez PROGESTERONE, BULK, MISC 2019-08-12 16:56:39 Yes QD Apply topically daily. Testosterone 5mg- Progesterone 25mg/ml cream Arturo Hernandez estradiol (VIVELLE-DOT) 0.1 mg/24 hr 2019-08-12 16:56:39 Yes 1{patch} Q.5W Place 1 patch on the skin 2 (two) times a week. Rashid-Fina Hernandez acetaminophen (TYLENOL) 325 MG tablet 2019-08-12 16:56:39 Y es 650mg Q6H Take 650 mg by mouth every 6 (six) hours as needed for fever. Arturo Hernandez dexlansoprazole (DEXILANT) 60 mg capsule 2019-08-12 16:56:39 Yes 60mg QD Take 60 mg by mouth daily. Sarah Hernandez escitalopram (LEXAPRO) 10 MG tablet 2019-08-12 16:56:39 Yes 10mg QD Take 10 mg by mouth daily. Arturo Hernandez mometasone (NASONEX) 50 mcg/actuation nasal spray 2019-08-12 16:56:39 Yes 2{spray} QD 2 sprays into each nostril daily. Arturo Hernandez ondansetron (ZOFRAN) 8 MG tablet 2019-08-12 16:56:39 Yes 8mg Q8H Take 8 mg by mouth every 8 (eight) hours as needed for nausea or vomiting. Arturo Hernandez metFORMIN XR (GLUCOPHAGE-XR) 500 mg 24 hr tablet 2019-08-12 16:56:39 Yes 500mg QD Take 500 mg by mouth daily with breakfast. Arturo Hernandez thyroid, pork, (ARMOUR THYROID) 15 mg tablet 2019-08-12 16:56:39 Yes 1{tbl} QD Take 1 tablet by mouth daily. Pt takes levothyroxine a lso Arturo Hernandez metFORMIN (GLUCOPHAGE) 500 mg tablet 2019-08-10 19:04: 13 2019-08-10 00:00:00 No 500mg Q.5D Take 500 mg by mouth 2 (two) times a day with meals. Arturo Hernandez thyroid, pork, (NATURE-THROID) 16.25 mg tablet 2 16:31:30 2019-08-10 00:00:00 No 16.25mg QD Take 16.25 mg by mouth daily. Arturo Hernandez pantoprazole (PROTONIX) 40 MG EC tablet 00:00:00 2019-08-10 00:00:00 No TAKE ONE TABLET BY MOUTH DAILY Arturo Hernandez diclofenac (VOLTAREN) 1 % gel 2017-12-20 00:00:00 2019-08-10 00: 00:00 No APPLY TOPICALLY FOUR TIMES DAILY Arturo Hernandez Vital Signs Vital Name Observation Time Observation Value Comments Source Systolic blood pressure 2019-09-23 12:31:00 123 mm[Hg] [facility] Diastolic blood pressure 2019-09-23 12:31:00 70 mm[Hg] [facility] Heart rate 2019-09-23 12:31:00 55 /min [facility] Body temperature 2019-09-23 12:31:00 36.67 Sarita [facility] Respiratory rate 2019-09-23 12:31:00 16 /min [facility] Oxygen saturation in Arterial blood by Pulse oximetry 09-23 12:31:00 98 /[facility] height 2019-09-23 09:36:00 160 cm [facility] Body weight Measured 2019-09-23 09:36:00 85.866 kg [facility] BMI 2019-09-23 09:36:00 33.53 kg/m2 [facility] Systolic blood pressure 2019-08-12 11:59:36 125 mm[Hg] Arturo Hernandez Diastolic blood pressure 2019-08-12 11:59:36 61 mm[Hg] Arturo Hernandez Heart rate 2019-08-12 11:59:36 53 /min Arturo Hernandez Body temperature 2019-08-12 11:59:36 36.39 Sarita Loco Hernandez Respiratory rate 2019-08-12 11:59:36 16 /min Loco Hernandez Oxygen saturation in Arterial blood by Pulse oximetry 2018-09 11:59:36 97 /min Arturo Hernandez Body height 2019-08-10 12:46:00 160 cm Arturo Hernandez Body weight 2019-08-10 12:46:00 87.544 kg Arturo Hernandez BMI 2019-08-10 12:46:00 34.19 kg/m2 Arturo Hernandez Procedures Procedure Date / Time Performed Performing Clinician [facility] e POLYSOMNOGRAPHY REPORT - SCAN 2019-11-18 11:13:41 Provider, Chetan stacy Scanning [facility] UNATTENDED SLEEP STUDY W/ANALYSIS 2019-10-20 13:42:20 System, Rich pena Not In [facility] REPORT OF PROCEDURE - ENDOSCOPY URL 2019-09-23 11:21:34 Lesia Cheng [facility] REPORT OF PROCEDURE - ENDOSCOPY URL 2019-09-23 11:11:22 Lesia Cheng [facility] TISSUE EXAM 2019-09-23 11:04:00 [facility] 2019-09-23 10:14:00 [facility]SULE PH MONITORING 2019-09-23 10:00:00 Prosper Davidguzman [facility] UPPER ENDOSCOPY,BIOPSY 2019-09-23 10:00:00 [facility] COLONOSCOPY,POLYPECTOMY 2019-09-23 10:00:00 Prosper [facility] CT ANGIOGRAM PE CHEST 2019-08-12 14:16:51 Adonis Alvarado Jew US CAROTID DUPLEX BILATERAL 2019-08-12 14:00:45 Adonis Alvarado Jew POC GLUCOSE 2019-08-12 11:59:00 Howie Taylor Brian Arturo Hernandez D-DIMER 2019-08-12 10:46:00 AamriHowie Arturo Jew POC GLUCOSE 2019-08-11 16:03:00 Mariann Rodriguez Jew POC GLUCOSE 2019-08-11 10:59:00 Nicsue Mariann Morris Jew TTE COMPLETE, WO CONTRAST, W DOPPLER ([id number]) 2019-08-11 08:2 2:48 Matt Villegasist POC GLUCOSE 2019-08-11 06:36:00 Mariann Rodriguez THYROID STIMULATING HORMONE 2019-08-11 05:44:00 Laura Sabillon B NATRIURETIC PEPTIDE 2019-08-11 05:44:00 Laura Sabillon HC COMPLETE BLD COUNT W/AUTO DIFF 2019-08-11 05:44:00 Nelly Sabillon BASIC METABOLIC PANEL 2019-08-11 05:44:00 Laura Sabillon octaviosamira Hernandez ESTIMATED GFR 2019-08-11 05:44:00 Laura Sabillon Catia Michael ramos Jew LIPID PANEL 2019-08-11 05:44:00 Laura Sabilloneltonjuan Hernandez MAGNESIUM LEVEL 2019-08-11 05:44:00 Laura Sabilloneltonjuan Hernandez HEMOGLOBIN A1C 2019-08-11 05:44:00 Laura Sabillon usanson Jew POC GLUCOSE 2019-08-10 21:39:00 Mariann Rodriguezist TROPONIN 2019-08-10 21:12:00 Johnathan Lerner Met hodist POC GLUCOSE 2019-08-10 18:18:00 Mariann Rodriguez PROTHROMBIN TIME WITH INR 2019-08-10 16:18:00 Matt Villegas PARTIAL THROMBOPLASTIN TIME (PTT) 2019-08-10 16:18:00 Sydni Villegas Jew TROPONIN 2019-08-10 15:54:00 Johnathan Lerner Met hodist XR CHEST 2 VW 2019-08-10 14:53:34 Matt Villegas Meth odist ECG ED PRELIMINARY INTERPRETATION 2019-08-10 14:04:36 Sydni Villegas Arturo Jew HC COMPLETE BLD COUNT W/AUTO DIFF 2019-08-10 13:59:00 Tio Lerner Jew COMPREHENSIVE METABOLIC PANEL 2019-08-10 13:59:00 Johnathan Lerner Jew TROPONIN 2019-08-10 13:59:00 Johnathan Lerner Met hodist B NATRIURETIC PEPTIDE 2019-08-10 13:59:00 Johnathan Lerner on Jew ESTIMATED GFR 2019-08-10 13:59:00 Johnathan Lerner Met hodist LIPASE LEVEL 2019-08-10 13:59:00 Matt Villegas Arturo Meth odist ECG 12-LEAD 2019-08-10 12:50:44 Johnathan Lerner Met hodist T3, FREE 2019-08-10 01:15:00 Jay Anaya on Jew TROPONIN 2019-08-10 01:11:00 Jay Anaya on Jew XR CHEST 1 VW PORTABLE 2019-08-09 23:23:22 Jay Anaya Jew COMPREHENSIVE METABOLIC PANEL 2019-08-09 22:37:00 Brie Anaya Jew HC COMPLETE BLD COUNT W/AUTO DIFF 2019-08-09 22:37:00 Jay Anaya Jew TROPONIN 2019-08-09 22:37:00 Jay Anaya on Jew B NATRIURETIC PEPTIDE 2019-08-09 22:37:00 Jay Anaya Jew ESTIMATED GFR 2019-08-09 22:37:00 Jay Anaya on Jew T3 2019-08-09 22:37:00 Jay Anaya on Jew T4 2019-08-09 22:37:00 Jay Anaya on Jew T4, FREE 2019-08-09 22:37:00 Jay Anaya on Jew THYROID STIMULATING HORMONE 2019-08-09 22:37:00 Jewels Anaya Jew ECG 12-LEAD 2019-08-09 22:32:00 Jay Anaya on Jew ECG ED PRELIMINARY INTERPRETATION 2019-08-09 22:29:15 Jay Anaya Jew Plan of Care Planned Activity Planned Date Details Comments Source Future Scheduled Test 2029-09-23 00:00:00 Screening for ag gnant neoplasm of colon (procedure) [code = 189199322] [facility] Future Scheduled Test 2020-06-02 00:00:00 INFLUENZA VACCINE [code = INFLUENZA VACCINE] [facility] Future Scheduled Test 2020-05-03 00:00:00 INFLUENZA VACCINE (#1) [code = INFLUENZA VACCINE (#1)] [facility] Future Scheduled Test 2010 00:00:00 BREAST CANCER SCRE ENING [code = BREAST CANCER SCREENING] [facility] Future Scheduled Test 2010 00:00:00 COLONOSCOPY SCREEN ING [code = COLONOSCOPY SCREENING] [facility] Future Scheduled Test 2010 00:00:00 SHINGLES VACCINES (#1) [code = SHINGLES VACCINES (#1)] [facility] Future Scheduled Test 1981 00:00:00 Screening for ag gnant neoplasm of cervix (procedure) [code = 506990660] [facility] Future Scheduled Test 1981 00:00:00 Screening for ag gnant neoplasm of cervix (procedure) [code = 404145160] [facility] Future Scheduled Test 1970 00:00:00 DIABETIC FOOT EXAM [code = DIABETIC FOOT EXAM] [facility] Future Scheduled Test 1970 00:00:00 URINE MICROALBUMIN [code = URINE MICROALBUMIN] [facility] Future Scheduled Test 1960 00:00:00 Screening for ag gnant neoplasm of breast (procedure) [code = 025259182] [facility] Future Scheduled Test 1960 00:00:00 DIABETIC RETINAL E YE EXAM [code = DIABETIC RETINAL EYE EXAM] [facility] Encounters Start Date/Time End Date/Time Encounter Type Admission Type Attendi [facility] Care Department Encounter ID Source 2020-04-21 08:22:05 2020-04-21 08:52:05 Office Visit Cathy Olivares [facility] [id number] 2020-04-21 07:20:48 2020-04-21 08:03:36 Office Visit Carmen Balbuena [facility] [id number] 2020-02-04 08:12:23 2020-02-04 10:00:35 Office Visit Carmen Balbuena [facility] [id number] 2019-11-16 15:57:18 2019-11-16 16:27:18 Office Visit Sheik reema Sanjiv Briones [facility] [id number] 2019-11-12 08:56:54 2019-11-12 10:36:02 Office Visit Carmen Balbuena [facility] [id number] 2019-10-21 14:30:17 2019-10-21 15:55:24 Office Visit Toribio Sargent [facility] [id number] 2019-08-10 00:00:00 2019-08-12 00:00:00 Outpatient [facility] [id number] [facility] 2019-08-09 00:00:00 2019-08-10 00:00:00 Emergency [facility] [id number] [facility] Results Test Description Test Time Test Comments Results Result Comments Source CBC W/MANUAL DIFF 2020-05-04 15:48:00 Test Item WHITE BLOOD CELL (test code = WBC) 3.4 10 3/uL 4.5-11.0 L RED BLOOD CELL (test code = RBC) 3.96 10 6/uL 3.50-5.50 N HEMOGLOBIN (test code = HGB) 12.2 g/dL 12.0-16.0 N HEMATOCRIT (test code = HCT) 39.1 % 37.0-55.0 N MEAN CELL VOLUME (test code = MCV) 99 fL 81-102 N MEAN CELL HGB (test code = MCH) 30.8 pg 26.0-34.0 N MEAN CELL HGB CONCENTRATION (test code = MCHC) 31.2 g/dL 31.0-37 .0 N RED CELL DISTRIBUTION WIDTH (test code = RDW) 13.8 % 11.5-14. 5 N PLATELET COUNT (test code = PLT) 188 10 3/uL 150-400 N MEAN PLATELET VOLUME (test code = MPV) 11.2 fL 9.0-12.6 N NEUTROPHIL # (test code = NT#) 2.26 10 3/uL 1.5-7.0 N IMMATURE GRANULOCYTE # (test code = IG#) 0.010 x10 3/uL 0.000-0.100 N LYMPHOCYTE # (test code = LY#) 0.53 10 3/uL 1.50-4.00 L MONOCYTE # (test code = MO#) 0.53 10 3/uL 0.20-0.80 N EOSINOPHIL # (test code = EO#) 0.03 10 3/uL 0.0-0.5 N BASOPHIL # (test code = BA#) 0.00 10 3/uL 0.0-0.1 N TOTAL CELLS COUNTED (test code = TCC) 100 #CELLS SEGMENTED NEUTROPHILS (test code = SEG) 20 % 33-76 L BAND NEUTROPHIL (test code = BAND) 52 % 0-1 H LYMPHOCYTE (test code = LYMPH) 10 % 14-54 L ATYPICAL LYMPH (test code = ALYMPH) 0 % 0-5 N MONOCYTE (test code = MON) 12 % 0-12 N METAMYELOCYTE (test code = META) 1 % 0-0 H MYELOCYTE (test code = MYELO) 3 % 0-0 H PROMYELOCYTE (test code = PROM) 2 % 0-0 H PLATELET ESTIMATE (test code = PLTEST) ADEQUATE ADEQUATE PLATELET MORPHOLOGY (test code = PLTMORPH) FEW GIANT PLTS NORMAL HEMATOLOGY COMMENT (test code = HEMOCOMM) TO BE REVIEWED DIFFERENTIAL [id number] 15:48:00* Test Item Value Reference Range Interpretation Comments RBC MORPHOLOGY REQUIRED (test code = RBCM) NORMAL PATHOLOGIST [id number] 15:48:00* Test Item Value Reference Range Interpretation Comments PATHOLOGIST FINDINGS (test code = PATHRVW) Agree with differential. Lymphopenia and left shift.-Dr. Moncada - CT ABD PELVIS [id number] 20:22:00Patient Name: FILIBERTO SIMON Unit No: [id number] EXAMS: CPT CODE: [id number] CT ABD PELVIS W/CONT [id number] CT abdomen and pelvis with contrast 05/02/2020 CLINICAL INDICATION: Abdominal pain, recent bariatric surgery, fever COMPARISON: None available LOCATION: W1 TECHNIQUE: Helical CT axial imaging of the abdomen and pelvis was performed following the administration of intravenous contrast. Coronal and sagittal reformatted images were obtained. One or more of the following dose reduction techniques were used: Automated exposure control, adjustment of the mA and/or kV according to patient size, and/or utilization of iterative reconstruction technique. FINDINGS: Lower thorax: Unremarkable. Hepatobiliary: Unremarkable. Gallbladder: Unremarkable. Spleen: Unremarkable. Pancreas: Unre markable. Kidneys: Small bilateral simple appearing cysts. Adrenals: Unremarkable. Lymph nodes: Unremarkable. Vessels: Unremarkable. Peritoneum/retroperitoneum: Unremarkable. Pelvic organs/bladder: Unrema rkable. Bowel: Mild ileus. Nonworrisome postoperative appearance. Nondil ated appendix. Bones/soft tissues: Chronic appearing degenerative ch anges in the skeleton. IMPRESSION: 1. Nonworrisome postoperative appearance. 2. Mild ileus. Elect ronically Signed by Chaim Lyons on 05/02/2020 at 2021 Reported and signed by: Chami Lyons CC: Self Referred; Beau Gann MD Technologist: Soo Naylor CTDI: 20.30 DLP: 1113.4 Trscr Dt/Tm: 05/02/2020 (2021) by:[email or web address] Electronic Signature Date/Time: 05/02/2020 (2021)Orig Print D/T: S: 05/02/2020 (2024) Name: FILIBERTO HEREDIA [facility] Phys: [email or web address] [place] [address] : 1960 Age: 59 Sex: [place] [id number] Loc: N C.ERS Exam Date: 05/02/2020 Status: REG ER PH: FAX: PAGE 1 Signed Rep ort UA RFLX MICR CULT IF [id number] 20:06:00* Test Item Value Reference Range Interpretation Comments UA COLOR (test code = COLU) COURTNEY YELLOW A UA APPEARANCE (test code = APPU) Slightly-Cloudy CLEAR UA GLUCOSE DIPSTICK (test code = DGLUU) NEGATIVE NEGATIVE UA BILIRUBIN DIPSTICK (test code = BILU) NEGATIVE NEGATIVE UA KETONE DIPSTICK (test code = KETU) NEGATIVE NEGATIVE UA SPECIFIC GRAVITY (test code = SGU) 1.030 1.005-1.025 H UA BLOOD DIPSTICK (test code = WEN) TRACE NEGATIVE A UA PH DIPSTICK (test code = MAVIS) 5.0 5.0-8.0 UA PROTEIN DIPSTICK (test code = PROU) NEGATIVE NEGATIVE UA UROBILINOGEN DIPSTICK (test code = URO) 2.0 EU/dL 0.1-0.2 A UA NITRITE DIPSTICK (test code = EDA) NEGATIVE NEGATIVE UA LEUKOCYTE ESTERASE DIPSTICK (test code = LEUU) NEGATIVE NEGA TIVE UA MICROSCOPIC NEEDED? (test code = UAMICRO) YES NO A UA WBC (test code = WBCU) 3-5 /hpf 0-3 A UA RBC (test code = RBCU) 6-10 /hpf 0-3 A UA BACTERIA (test code = BACU) RARE /HPF NEGATIVE UA SQUAMOUS CELLS (test code = SQU) RARE /HPF FEW UA MUCUS (test code = MUCU) MANY /lpf Indication for culture: Dysuria/FrequencyCBC W/MANUAL [id number] 19:43:00* Test Item Value Reference Range Interpretation Comments WHITE BLOOD CELL (test code = WBC) 3.4 10 3/uL 4.5-11.0 L RED BLOOD CELL (test code = RBC) 3.96 10 6/uL 3.50-5.50 N HEMOGLOBIN (test code = HGB) 12.2 g/dL 12.0-16.0 N HEMATOCRIT (test code = HCT) 39.1 % 37.0-55.0 N MEAN CELL VOLUME (test code = MCV) 99 fL 81-102 N MEAN CELL HGB (test code = MCH) 30.8 pg 26.0-34.0 N MEAN CELL HGB CONCENTRATION (test code = MCHC) 31.2 g/dL 31.0-37 .0 N RED CELL DISTRIBUTION WIDTH (test code = RDW) 13.8 % 11.5-14. 5 N PLATELET COUNT (test code = PLT) 188 10 3/uL 150-400 N MEAN PLATELET VOLUME (test code = MPV) 11.2 fL 9.0-12.6 N NEUTROPHIL # (test code = NT#) 2.26 10 3/uL 1.5-7.0 N IMMATURE GRANULOCYTE # (test code = IG#) 0.010 x10 3/uL 0.000-0.100 N LYMPHOCYTE # (test code = LY#) 0.53 10 3/uL 1.50-4.00 L MONOCYTE # (test code = MO#) 0.53 10 3/uL 0.20-0.80 N EOSINOPHIL # (test code = EO#) 0.03 10 3/uL 0.0-0.5 N BASOPHIL # (test code = BA#) 0.00 10 3/uL 0.0-0.1 N TOTAL CELLS COUNTED (test code = TCC) 100 #CELLS SEGMENTED NEUTROPHILS (test code = SEG) 20 % 33-76 L BAND NEUTROPHIL (test code = BAND) 52 % 0-1 H LYMPHOCYTE (test code = LYMPH) 10 % 14-54 L ATYPICAL LYMPH (test code = ALYMPH) 0 % 0-5 N MONOCYTE (test code = MON) 12 % 0-12 N METAMYELOCYTE (test code = META) 1 % 0-0 H MYELOCYTE (test code = MYELO) 3 % 0-0 H PROMYELOCYTE (test code = PROM) 2 % 0-0 H PLATELET ESTIMATE (test code = PLTEST) ADEQUATE ADEQUATE PLATELET MORPHOLOGY (test code = PLTMORPH) FEW GIANT PLTS NORMAL HEMATOLOGY COMMENT (test code = HEMOCOMM) TO BE REVIEWED DIFFERENTIAL [id number] 19:43:00* Test Item Value Reference Range Interpretation Comments RBC MORPHOLOGY REQUIRED (test code = RBCM) NORMAL CBC W/MANUAL [id number] 19:43:00* Test Item Value Reference Range Interpretation Comments WHITE BLOOD CELL (test code = WBC) 3.4 10 3/uL 4.5-11.0 L RED BLOOD CELL (test code = RBC) 3.96 10 6/uL 3.50-5.50 N HEMOGLOBIN (test code = HGB) 12.2 g/dL 12.0-16.0 N HEMATOCRIT (test code = HCT) 39.1 % 37.0-55.0 N MEAN CELL VOLUME (test code = MCV) 99 fL 81-102 N MEAN CELL HGB (test code = MCH) 30.8 pg 26.0-34.0 N MEAN CELL HGB CONCENTRATION (test code = MCHC) 31.2 g/dL 31.0-37 .0 N RED CELL DISTRIBUTION WIDTH (test code = RDW) 13.8 % 11.5-14. 5 N PLATELET COUNT (test code = PLT) 188 10 3/uL 150-400 N MEAN PLATELET VOLUME (test code = MPV) 11.2 fL 9.0-12.6 N NEUTROPHIL # (test code = NT#) 2.26 10 3/uL 1.5-7.0 N IMMATURE GRANULOCYTE # (test code = IG#) 0.010 x10 3/uL 0.000-0.100 N LYMPHOCYTE # (test code = LY#) 0.53 10 3/uL 1.50-4.00 L MONOCYTE # (test code = MO#) 0.53 10 3/uL 0.20-0.80 N EOSINOPHIL # (test code = EO#) 0.03 10 3/uL 0.0-0.5 N BASOPHIL # (test code = BA#) 0.00 10 3/uL 0.0-0.1 N TOTAL CELLS COUNTED (test code = TCC) 100 #CELLS SEGMENTED NEUTROPHILS (test code = SEG) 20 % 33-76 L BAND NEUTROPHIL (test code = BAND) 52 % 0-1 H LYMPHOCYTE (test code = LYMPH) 10 % 14-54 L ATYPICAL LYMPH (test code = ALYMPH) 0 % 0-5 N MONOCYTE (test code = MON) 12 % 0-12 N METAMYELOCYTE (test code = META) 1 % 0-0 H MYELOCYTE (test code = MYELO) 3 % 0-0 H PROMYELOCYTE (test code = PROM) 2 % 0-0 H PLATELET ESTIMATE (test code = PLTEST) ADEQUATE ADEQUATE PLATELET MORPHOLOGY (test code = PLTMORPH) FEW GIANT PLTS NORMAL HEMATOLOGY COMMENT (test code = HEMOCOMM) TO BE REVIEWED DIFFERENTIAL [id number] 19:43:00* Test Item Value Reference Range Interpretation Comments RBC MORPHOLOGY REQUIRED (test code = RBCM) NORMAL PATHOLOGIST [id number] 19:43:00* Test Item Value Reference Range Interpretation Comments PATHOLOGIST FINDINGS (test code = PATHRVW) CBC W/MANUAL [id number] 19:43:00* Test Item Value Reference Range Interpretation Comments WHITE BLOOD CELL (test code = WBC) 3.4 10 3/uL 4.5-11.0 L RED BLOOD CELL (test code = RBC) 3.96 10 6/uL 3.50-5.50 N HEMOGLOBIN (test code = HGB) 12.2 g/dL 12.0-16.0 N HEMATOCRIT (test code = HCT) 39.1 % 37.0-55.0 N MEAN CELL VOLUME (test code = MCV) 99 fL 81-102 N MEAN CELL HGB (test code = MCH) 30.8 pg 26.0-34.0 N MEAN CELL HGB CONCENTRATION (test code = MCHC) 31.2 g/dL 31.0-37 .0 N RED CELL DISTRIBUTION WIDTH (test code = RDW) 13.8 % 11.5-14. 5 N PLATELET COUNT (test code = PLT) 188 10 3/uL 150-400 N MEAN PLATELET VOLUME (test code = MPV) 11.2 fL 9.0-12.6 N NEUTROPHIL # (test code = NT#) 2.26 10 3/uL 1.5-7.0 N IMMATURE GRANULOCYTE # (test code = IG#) 0.010 x10 3/uL 0.000-0.100 N LYMPHOCYTE # (test code = LY#) 0.53 10 3/uL 1.50-4.00 L MONOCYTE # (test code = MO#) 0.53 10 3/uL 0.20-0.80 N EOSINOPHIL # (test code = EO#) 0.03 10 3/uL 0.0-0.5 N BASOPHIL # (test code = BA#) 0.00 10 3/uL 0.0-0.1 N TOTAL CELLS COUNTED (test code = TCC) 100 #CELLS SEGMENTED NEUTROPHILS (test code = SEG) 20 % 33-76 L BAND NEUTROPHIL (test code = BAND) 52 % 0-1 H LYMPHOCYTE (test code = LYMPH) 10 % 14-54 L ATYPICAL LYMPH (test code = ALYMPH) 0 % 0-5 N MONOCYTE (test code = MON) 12 % 0-12 N METAMYELOCYTE (test code = META) 1 % 0-0 H MYELOCYTE (test code = MYELO) 3 % 0-0 H PROMYELOCYTE (test code = PROM) 2 % 0-0 H PLATELET ESTIMATE (test code = PLTEST) ADEQUATE ADEQUATE PLATELET MORPHOLOGY (test code = PLTMORPH) FEW GIANT PLTS NORMAL HEMATOLOGY COMMENT (test code = HEMOCOMM) TO BE REVIEWED DIFFERENTIAL [id number] 19:43:00* Test Item Value Reference Range Interpretation Comments RBC MORPHOLOGY REQUIRED (test code = RBCM) NORMAL CBC W/MANUAL [id number] 19:41:00* Test Item Value Reference Range Interpretation Comments WHITE BLOOD CELL (test code = WBC) 3.4 10 3/uL 4.5-11.0 L RED BLOOD CELL (test code = RBC) 3.96 10 6/uL 3.50-5.50 N HEMOGLOBIN (test code = HGB) 12.2 g/dL 12.0-16.0 N HEMATOCRIT (test code = HCT) 39.1 % 37.0-55.0 N MEAN CELL VOLUME (test code = MCV) 99 fL 81-102 N MEAN CELL HGB (test code = MCH) 30.8 pg 26.0-34.0 N MEAN CELL HGB CONCENTRATION (test code = MCHC) 31.2 g/dL 31.0-37 .0 N RED CELL DISTRIBUTION WIDTH (test code = RDW) 13.8 % 11.5-14. 5 N PLATELET COUNT (test code = PLT) 188 10 3/uL 150-400 N MEAN PLATELET VOLUME (test code = MPV) 11.2 fL 9.0-12.6 N NEUTROPHIL # (test code = NT#) 2.26 10 3/uL 1.5-7.0 N IMMATURE GRANULOCYTE # (test code = IG#) 0.010 x10 3/uL 0.000-0.100 N LYMPHOCYTE # (test code = LY#) 0.53 10 3/uL 1.50-4.00 L MONOCYTE # (test code = MO#) 0.53 10 3/uL 0.20-0.80 N EOSINOPHIL # (test code = EO#) 0.03 10 3/uL 0.0-0.5 N BASOPHIL # (test code = BA#) 0.00 10 3/uL 0.0-0.1 N TOTAL CELLS COUNTED (test code = TCC) #CELLS SEGMENTED NEUTROPHILS (test code = SEG) % 33-76 LYMPHOCYTE (test code = LYMPH) % 14-54 PLATELET ESTIMATE (test code = PLTEST) ADEQUATE PLATELET MORPHOLOGY (test code = PLTMORPH) NORMAL DIFFERENTIAL [id number] 19:41:00* Test Item Value Reference Range Interpretation Comments RBC MORPHOLOGY REQUIRED (test code = RBCM) CBC W/MANUAL [id number] 19:41:00* Test Item Value Reference Range Interpretation Comments WHITE BLOOD CELL (test code = WBC) 3.4 10 3/uL 4.5-11.0 L RED BLOOD CELL (test code = RBC) 3.96 10 6/uL 3.50-5.50 N HEMOGLOBIN (test code = HGB) 12.2 g/dL 12.0-16.0 N HEMATOCRIT (test code = HCT) 39.1 % 37.0-55.0 N MEAN CELL VOLUME (test code = MCV) 99 fL 81-102 N MEAN CELL HGB (test code = MCH) 30.8 pg 26.0-34.0 N MEAN CELL HGB CONCENTRATION (test code = MCHC) 31.2 g/dL 31.0-37 .0 N RED CELL DISTRIBUTION WIDTH (test code = RDW) 13.8 % 11.5-14. 5 N PLATELET COUNT (test code = PLT) 188 10 3/uL 150-400 N MEAN PLATELET VOLUME (test code = MPV) 11.2 fL 9.0-12.6 N NEUTROPHIL # (test code = NT#) 2.26 10 3/uL 1.5-7.0 N IMMATURE GRANULOCYTE # (test code = IG#) 0.010 x10 3/uL 0.000-0.100 N LYMPHOCYTE # (test code = LY#) 0.53 10 3/uL 1.50-4.00 L MONOCYTE # (test code = MO#) 0.53 10 3/uL 0.20-0.80 N EOSINOPHIL # (test code = EO#) 0.03 10 3/uL 0.0-0.5 N BASOPHIL # (test code = BA#) 0.00 10 3/uL 0.0-0.1 N TOTAL CELLS COUNTED (test code = TCC) #CELLS SEGMENTED NEUTROPHILS (test code = SEG) % 33-76 LYMPHOCYTE (test code = LYMPH) % 14-54 PLATELET ESTIMATE (test code = PLTEST) ADEQUATE PLATELET MORPHOLOGY (test code = PLTMORPH) NORMAL DIFFERENTIAL [id number] 19:41:00* Test Item Value Reference Range Interpretation Comments RBC MORPHOLOGY REQUIRED (test code = RBCM) BASIC METABOLIC [id number] 18:17:00* Test Item Value Reference Range Interpretation Comments SODIUM (test code = NA) 137 mmol/L 135-145 N POTASSIUM (test code = K) 3.4 mmol/L 3.5-5.1 L CHLORIDE (test code = CL) 105 mmol/L 98-107 N CARBON DIOXIDE (test code = CO2) 28 mmol/L 21-32 N ANION GAP (test code = GAP) 7.4 2.0-16.0 N GLUCOSE (test code = GLU) 113 mg/dL 65-99 H BLOOD UREA NITROGEN (test code = BUN) 19 mg/dL 4-23 N GLOMERULAR FILTRATION RATE (test code = GFR) >=60 max estimate ml/m in >60 The estimated glomerular filtration rate is computed usingpatient race, age (>18), sex, and serum creatinine. If anyof the needed data elements are missing the Laboratory cannot compute an estimation of the glomerular filtration rate. CREATININE (test code = CREAT) 0.9 mg/dL 0.6-1.5 N BUN/CREATININE RATIO (test code = BUN/CREA) 21.1 12.0-20.0 H CALCIUM (test code = CA) 8.4 mg/dL 8.5-10.1 L DATE OF LAST MENSTRUAL PERIOD: 05/01/20LIVER FUNCTION [id number] 18:17:00* Test Item Value Reference Range Interpretation Comments TOTAL PROTEIN (test code = PROT) 7.7 g/dL 6.4-8.2 N ALBUMIN (test code = ALB) 3.4 g/dL 3.4-5.0 N GLOBULIN (test code = GLOB) 4.3 g/dL 2.3-3.5 H BILIRUBIN TOTAL (test code = BILT) 0.8 mg/dL 0.2-1.2 N Use of this assay is not recommended for patients undergoingtreatment with Eltrombopag due to the potential for falselyelevated results. BILIRUBIN DIRECT (test code = BILD) 0.2 mg/dL 0.0-0.3 N BILIRUBIN INDIRECT (test code = BILIND) 0.6 mg/dL 0.0-0.8 N SGOT/AST (test code = AST) 51 U/L 15-37 H SGPT/ALT (test code = ALT) 79 U/L 6-50 H ALKALINE PHOSPHATASE (test code = ALKP) 120 U/L 45-117 H DATE OF LAST MENSTRUAL PERIOD: 05/01/[id number] 18:17:00* Test Item Value Reference Range Interpretation Comments LIPASE (test code = LIP) 59 U/L 73-393 L DATE OF LAST MENSTRUAL PERIOD: 05/01/20HCG SERUM [id number] 18:17:00* Test Item Value Reference Range Interpretation Comments HCG SERUM QUAL (test code = HCGQL) NEGATIVE NEGATIVE DATE OF LAST MENSTRUAL PERIOD: 05/01/[id number] 18:17:00* Test Item Value Reference Range Interpretation Comments TROPONIN-I (test code = TROPI) < 0.02 ng/mL 0.00-0.07 N DATE OF LAST MENSTRUAL PERIOD: 05/01/20BASIC METABOLIC [id number] 18:10:00 * Test Item Value Reference Range Interpretation Comments SODIUM (test code = NA) mmol/L 135-145 POTASSIUM (test code = K) mmol/L 3.5-5.1 CHLORIDE (test code = CL) mmol/L 98-107 CARBON DIOXIDE (test code = CO2) mmol/L 21-32 ANION GAP (test code = GAP) 2.0-16.0 GLUCOSE (test code = GLU) mg/dL 65-99 BLOOD UREA NITROGEN (test code = BUN) mg/dL 4-23 GLOMERULAR FILTRATION RATE (test code = GFR) ml/min >60 CREATININE (test code = CREAT) mg/dL 0.6-1.5 BUN/CREATININE RATIO (test code = BUN/CREA) 12.0-20.0 CALCIUM (test code = CA) mg/dL 8.5-10.1 DATE OF LAST MENSTRUAL PERIOD: 05/01/20LIVER FUNCTION [id number] 18:10:00* Test Item Value Reference Range Interpretation Comments TOTAL PROTEIN (test code = PROT) g/dL 6.4-8.2 ALBUMIN (test code = ALB) g/dL 3.4-5.0 GLOBULIN (test code = GLOB) g/dL 2.3-3.5 BILIRUBIN TOTAL (test code = BILT) mg/dL 0.2-1.2 BILIRUBIN DIRECT (test code = BILD) mg/dL 0.0-0.3 BILIRUBIN INDIRECT (test code = BILIND) mg/dL 0.0-0.8 SGOT/AST (test code = AST) U/L 15-37 SGPT/ALT (test code = ALT) U/L 6-50 ALKALINE PHOSPHATASE (test code = ALKP) U/L 45-117 DATE OF LAST MENSTRUAL PERIOD: 05/01/[id number] 18:10:00* Test Item Value Reference Range Interpretation Comments LIPASE (test code = LIP) U/L 73-393 DATE OF LAST MENSTRUAL PERIOD: 05/01/20HCG SERUM [id number] 18:10:00* Test Item Value Reference Range Interpretation Comments HCG SERUM QUAL (test code = HCGQL) NEGATIVE NEGATIVE DATE OF LAST MENSTRUAL PERIOD: 05/01/[id number] 18:10:00* Test Item Value Reference Range Interpretation Comments TROPONIN-I (test code = TROPI) ng/mL 0.00-0.07 DATE OF LAST MENSTRUAL PERIOD: 05/01/20CBC W/AUTO [id number] 18:02:00* Test Item Value Reference Range Interpretation Comments WHITE BLOOD CELL (test code = WBC) 3.4 10 3/uL 4.5-11.0 L RED BLOOD CELL (test code = RBC) 3.96 10 6/uL 3.50-5.50 N HEMOGLOBIN (test code = HGB) 12.2 g/dL 12.0-16.0 N HEMATOCRIT (test code = HCT) 39.1 % 37.0-55.0 N MEAN CELL VOLUME (test code = MCV) 99 fL 81-102 N MEAN CELL HGB (test code = MCH) 30.8 pg 26.0-34.0 N MEAN CELL HGB CONCENTRATION (test code = MCHC) 31.2 g/dL 31.0-37 .0 N RED CELL DISTRIBUTION WIDTH (test code = RDW) 13.8 % 11.5-14. 5 N PLATELET COUNT (test code = PLT) 188 10 3/uL 150-400 N MEAN PLATELET VOLUME (test code = MPV) 11.2 fL 9.0-12.6 N NEUTROPHIL % (test code = NT%) 67.2 % 33.0-76.0 N IMMATURE GRANULOCYTE % (test code = IG%) 0.3 % 0.0-1.0 N LYMPHOCYTE % (test code = LY%) 15.8 % 14.0-56.4 N MONOCYTE % (test code = MO%) 15.8 % 0.0-12.9 H EOSINOPHIL % (test code = EO%) 0.9 % 0.0-7.0 N BASOPHIL % (test code = BA%) 0.0 % 0-2.0 N NUCLEATED RBC % (test code = NRBC%) 0.0 % 0-0.2 N NEUTROPHIL # (test code = NT#) 2.26 10 3/uL 1.5-7.0 N IMMATURE GRANULOCYTE # (test code = IG#) 0.010 x10 3/uL 0.000-0.100 N LYMPHOCYTE # (test code = LY#) 0.53 10 3/uL 1.50-4.00 L MONOCYTE # (test code = MO#) 0.53 10 3/uL 0.20-0.80 N EOSINOPHIL # (test code = EO#) 0.03 10 3/uL 0.0-0.5 N BASOPHIL # (test code = BA#) 0.00 10 3/uL 0.0-0.1 N DIFFERENTIAL [id number] 18:02:00* Test Item Value Reference Range Interpretation Comments RBC MORPHOLOGY REQUIRED (test code = RBCM) PLATELET ESTIMATE (test code = PLTEST) ADEQUATE PLATELET MORPHOLOGY (test code = PLTMORPH) NORMAL CBC W/AUTO [id number] 18:02:00* Test Item Value Reference Range Interpretation Comments WHITE BLOOD CELL (test code = WBC) 3.4 10 3/uL 4.5-11.0 L RED BLOOD CELL (test code = RBC) 3.96 10 6/uL 3.50-5.50 N HEMOGLOBIN (test code = HGB) 12.2 g/dL 12.0-16.0 N HEMATOCRIT (test code = HCT) 39.1 % 37.0-55.0 N MEAN CELL VOLUME (test code = MCV) 99 fL 81-102 N MEAN CELL HGB (test code = MCH) 30.8 pg 26.0-34.0 N MEAN CELL HGB CONCENTRATION (test code = MCHC) 31.2 g/dL 31.0-37 .0 N RED CELL DISTRIBUTION WIDTH (test code = RDW) 13.8 % 11.5-14. 5 N PLATELET COUNT (test code = PLT) 188 10 3/uL 150-400 N MEAN PLATELET VOLUME (test code = MPV) 11.2 fL 9.0-12.6 N NEUTROPHIL % (test code = NT%) 67.2 % 33.0-76.0 N IMMATURE GRANULOCYTE % (test code = IG%) 0.3 % 0.0-1.0 N LYMPHOCYTE % (test code = LY%) 15.8 % 14.0-56.4 N MONOCYTE % (test code = MO%) 15.8 % 0.0-12.9 H EOSINOPHIL % (test code = EO%) 0.9 % 0.0-7.0 N BASOPHIL % (test code = BA%) 0.0 % 0-2.0 N NUCLEATED RBC % (test code = NRBC%) 0.0 % 0-0.2 N NEUTROPHIL # (test code = NT#) 2.26 10 3/uL 1.5-7.0 N IMMATURE GRANULOCYTE # (test code = IG#) 0.010 x10 3/uL 0.000-0.100 N LYMPHOCYTE # (test code = LY#) 0.53 10 3/uL 1.50-4.00 L MONOCYTE # (test code = MO#) 0.53 10 3/uL 0.20-0.80 N EOSINOPHIL # (test code = EO#) 0.03 10 3/uL 0.0-0.5 N BASOPHIL # (test code = BA#) 0.00 10 3/uL 0.0-0.1 N DIFFERENTIAL [id number] 18:02:00* Test Item Value Reference Range Interpretation Comments RBC MORPHOLOGY REQUIRED (test code = RBCM) PLATELET ESTIMATE (test code = PLTEST) ADEQUATE PLATELET MORPHOLOGY (test code = PLTMORPH) NORMAL SURGICAL [id number] 14:31:00 RUN DATE: 02/26/20 [facility] *LIVE* PAGE 1 RUN TIME: 1431 Specimen Inqui ry RUN USER: INTERFACE PATIENT: FILIBERTO SIMON ACCT #: [id number] LOC: NC.MS5 U #: [id number] AGE/SX: 59/F ROOM: [place] [id number] RE02/23/20REG DR: Morris Ramey : 60 BED: 1 DIS: 02/25/20 STATUS: DIS IN TLOC: SPEC #: [id number] RECD: 02/23/20 STATUS: PAOLA DE #: [id number] ZAIRA: 02/23/20- SUBM DR: Naida Ramey MD ENTERED: 02/23/20 SP TYPE: SURG OTHR DR: Nilda Lester [facility] Physician Undefined Provider Price Gutiérrez MDORDERED: PATHGM4, PATHGM5 TISSUES: A. SMALL BOWEL - SMALL BOWEL B. GASTRO-ESOPHAGEAL JUNCTION BIOPSY - GE JUNCTION BX COMMENT Multiple additional H E levels were examined for part B. Dr. Nury Vicente was notified of these results on 02/26/20 at 1427 hrs. FINAL DI AGNOSIS A. SMALL BOWEL, PARTIAL GASTRECTOMY WITH GASTROJEJUNOSTOMY: - CL INICAL HISTORY OF PRIOR GASTRIC SLEEVE, NOW FOR BARIATRIC REVISIONAL SURGERY - SMALL INTESTINE WITH FOCAL CONGESTION, NO OTHER SIGNIFICANT HISTOPATHOLOGIC CHANGES - PRESERVED VILLOUS ARCHITECTURE - NEGATIVE FOR INTRAEP ITHELIAL LYMPHOCYTOSIS B. GASTROESOPHAGEAL JUNCTION, BIOPSY: - PARTIA LLY ERODED COLUMNAR MUCOSA WITH FOCAL CONGESTION, MILD REACTIVE CHANGES, AND RARE GOBLET CELLS CONSISTENT WITH MINIMAL FOCAL INTESTINAL METAPLASIA - NEGATIVE FOR DYSPLASIA - NO SQUAMOUS MUCOSA IDENTIFIED GROSS DESCRI PTION Patient history: Reflux, obesity A. Specimen labeled "small bow el". Received are two pieces of small intestine. The larger piece measures 3 .5 cm in length, 2.3 cm in diameter. Both the margins of resection are sealed with metallic edith. The wall of the small intestine shows a large opening or defect measuring 3 cm in diameter. The second smaller piece of intes mathew measures 2 x 0.8 x 0.7 cm. It has a stapled margin of resection. Section code: A1: One of the stapled margins of resection of the larger piece of the small intestine A2: Opposite margin of resection CONTINUED ON NEXT PAGE RUN DATE: 02/26/20 [facility] *LIVE* PAGE 2 RUN TIME: 1431 Specimen Inquiry RUN USER: INTER FACE SPEC #: [id number] PATIENT: FILIBERTO SIMON #[id number] (Con tinued) GROSS DESCRIPTION (Continued) A3-A4: Sec tions from the margin of the opening in the wall of the small intestine A5: S ection from separate smaller piece of the intestine B. Specimen labeled " gastroesophageal junction biopsy". Received are two pieces of wall-butts to hem orrhagic soft tissue, each measuring 2 mm in diameter. Submitted as B.------- ----- Signed Brian Moncada 02/25 1431 END OF REPORT CBC W/AUTO [id number] 12:40:00* Test Item Value Reference Range Interpretation Comments WHITE BLOOD CELL (test code = WBC) 7.2 10 3/uL 4.5-11.0 N RED BLOOD CELL (test code = RBC) 3.01 10 6/uL 3.50-5.50 L HEMOGLOBIN (test code = HGB) 9.4 g/dL 12.0-16.0 L HEMATOCRIT (test code = HCT) 30.0 % 37.0-55.0 L MEAN CELL VOLUME (test code = MCV) 100 fL 81-102 N MEAN CELL HGB (test code = MCH) 31.2 pg 26.0-34.0 N MEAN CELL HGB CONCENTRATION (test code = MCHC) 31.3 g/dL 31.0-37 .0 N RED CELL DISTRIBUTION WIDTH (test code = RDW) 13.3 % 11.5-14. 5 N PLATELET COUNT (test code = PLT) 151 10 3/uL 150-400 N MEAN PLATELET VOLUME (test code = MPV) 11.1 fL 9.0-12.6 N NEUTROPHIL % (test code = NT%) 74.7 % 33.0-76.0 N IMMATURE GRANULOCYTE % (test code = IG%) 0.3 % 0.0-1.0 N LYMPHOCYTE % (test code = LY%) 17.7 % 14.0-56.4 N MONOCYTE % (test code = MO%) 6.7 % 0.0-12.9 N EOSINOPHIL % (test code = EO%) 0.3 % 0.0-7.0 N BASOPHIL % (test code = BA%) 0.3 % 0-2.0 N NUCLEATED RBC % (test code = NRBC%) 0.0 % 0-0.2 N NEUTROPHIL # (test code = NT#) 5.35 10 3/uL 1.5-7.0 N IMMATURE GRANULOCYTE # (test code = IG#) 0.020 x10 3/uL 0.000-0.100 N LYMPHOCYTE # (test code = LY#) 1.27 10 3/uL 1.50-4.00 L MONOCYTE # (test code = MO#) 0.48 10 3/uL 0.20-0.80 N EOSINOPHIL # (test code = EO#) 0.02 10 3/uL 0.0-0.5 N BASOPHIL # (test code = BA#) 0.02 10 3/uL 0.0-0.1 N BASIC METABOLIC [id number] 05:26:00* Test Item Value Reference Range Interpretation Comments SODIUM (test code = NA) 141 mmol/L 135-145 N POTASSIUM (test code = K) 3.9 mmol/L 3.5-5.1 N CHLORIDE (test code = CL) 109 mmol/L 98-107 H CARBON DIOXIDE (test code = CO2) 26 mmol/L 21-32 N ANION GAP (test code = GAP) 9.9 2.0-16.0 N GLUCOSE (test code = GLU) 125 mg/dL 65-99 H BLOOD UREA NITROGEN (test code = BUN) 20 mg/dL 4-23 N GLOMERULAR FILTRATION RATE (test code = GFR) 54 ml/min >60 L The estimated glomerular filtration rate is computed usingpatient race, age (>18), sex, and serum creatinine. If anyof the needed data elements are missing the Laboratory cannot compute an estimation of the glomerular filtration rate. CREATININE (test code = CREAT) 1.1 mg/dL 0.6-1.5 N BUN/CREATININE RATIO (test code = BUN/CREA) 18.2 12.0-20.0 N CALCIUM (test code = CA) 8.0 mg/dL 8.5-10.1 L CBC W/AUTO [id number] 05:18:00* Test Item Value Reference Range Interpretation Comments WHITE BLOOD CELL (test code = WBC) 9.1 10 3/uL 4.5-11.0 N RED BLOOD CELL (test code = RBC) 3.02 10 6/uL 3.50-5.50 L HEMOGLOBIN (test code = HGB) 9.4 g/dL 12.0-16.0 L HEMATOCRIT (test code = HCT) 29.7 % 37.0-55.0 L MEAN CELL VOLUME (test code = MCV) 98 fL 81-102 N MEAN CELL HGB (test code = MCH) 31.1 pg 26.0-34.0 N MEAN CELL HGB CONCENTRATION (test code = MCHC) 31.6 g/dL 31.0-37 .0 N RED CELL DISTRIBUTION WIDTH (test code = RDW) 13.2 % 11.5-14. 5 N PLATELET COUNT (test code = PLT) 185 10 3/uL 150-400 N MEAN PLATELET VOLUME (test code = MPV) 11.4 fL 9.0-12.6 N NEUTROPHIL % (test code = NT%) 84.4 % 33.0-76.0 H IMMATURE GRANULOCYTE % (test code = IG%) 0.3 % 0.0-1.0 N LYMPHOCYTE % (test code = LY%) 9.3 % 14.0-56.4 L MONOCYTE % (test code = MO%) 5.8 % 0.0-12.9 N EOSINOPHIL % (test code = EO%) 0.0 % 0.0-7.0 N BASOPHIL % (test code = BA%) 0.2 % 0-2.0 N NUCLEATED RBC % (test code = NRBC%) 0.0 % 0-0.2 N NEUTROPHIL # (test code = NT#) 7.65 10 3/uL 1.5-7.0 H IMMATURE GRANULOCYTE # (test code = IG#) 0.030 x10 3/uL 0.000-0.100 N LYMPHOCYTE # (test code = LY#) 0.84 10 3/uL 1.50-4.00 L MONOCYTE # (test code = MO#) 0.53 10 3/uL 0.20-0.80 N EOSINOPHIL # (test code = EO#) 0.00 10 3/uL 0.0-0.5 N BASOPHIL # (test code = BA#) 0.02 10 3/uL 0.0-0.1 N - XR UGI SGL [id number] 16:31:00Patient Name: FILIBERTO SIMON Unit No: [id number] EXAMS: CPT CODE: [id number] XR UGI SGL CONTRAST [id number] EXAM: Upper GI Dictation location: A1 INDICATION: Postop bypass and hiatal hernia repair COMPARISON: None DISCUSSION: Water-soluble contrast was swallowed under fluoroscopic evaluation and documented with spot films. No leak or residual hernia is identified. The anastomosis is unremarkable. There is esophageal dysmotility, consisting of tertiary contractions and intraesophageal reflux. Fluoroscopy time: 15 seconds Fluoroscopic images: 16 Fluoroscopic dose: 40.7 mGy IMPRESSION: No leak or residual hernia status post gastric bypass and hiatal hernia repair. at 1631 Reported and signed by: Mando Ramsay MD CC: No Primary or Family Physician; Morris Ramey MD Technologist: Mahamed Webb Fluoro Time: 15 DAP (Gy m2): Air Kerma (mGy): 40.70Trscr Dt/Tm: 02/23/2020 (1630) by:TavonBCAnum Electronic S ignature Date/Time: 02/23/2020 (1630)Orig Print D/T: S: 02/23/2020 (1633) Name: FILIBERTO SIMON [facility] Phys: GILBERTO Priscilla Morris Ramey [place] [address] : 1960 Age: 59 Sex: [place] [id number] Loc: NC.5203 1 Exam D ate: 02/23/2020 Status: ADM IN PH: FAX: PAGE 1 Signed Report Novel Coronavirus 2019 [id number] 11:45:00* Test Item Value Reference Range Interpretation Comments [facility] (test code = COVNONPUI) Negative Negative Negative results do not preclude SARS-CoV-2 infection andshould not be used as the sole basis for patient managementdecisions. Negative results must be combined with otherclinical observations, patient history, and epidemiologicalinformation. Detection of SARS-CoV-2 RNA may be affected bysample collection methods, storage conditions, and/or stageof infection. Viral RNA mutations, vaccinations, antiviraltherapeutics, antibiotics, chemotherapeutic orimmunosuppressant drugs have not been evaluated for effectson detection.Results are for the identification of SARS-CoV-2 RNA usingthe [employer] M2000 System under the FDA Emergency UseAuthorization. The testing is performed by personneltrained in the procedures for the [employer] M2000 moleculardiagnostic SARS-CoV-2 assay in vitro. SURGICAL [id number] 14:45:00 RUN DATE: 01/01/20 [facility] LAB *LIVE* PAGE 1 RUN TIME: 1445 Specimen Inqui ry RUN USER: INTERFACE PATIENT: FILIBERTO SIMON ACCT #: [id number] LOC: NC.END U #: [id number] AGE/SX: 59/F ROOM: RE12/29/19REG DR: Morris Ramey : 60 BED: DIS: [facility] SPEC #: [id number] RECD: 12/30/19 STATUS: PAOLA SANTINO #: [id number] ZAIRA: 12/30/19 [facility] DR: Nadia Ramey MD ENTERED: 12/30/19 SP TYPE: SURG OTHR DR: DOES_N OT KNOW Self Referred Und efined Provider Price Castañeda MDORDERED: PATHGM4/3, SPEC STAIN I TISSUES: A. PYLORIC ANTRUM - BX-ANTRUM B. GASTRO-ESOPHAGEAL JUNCTION BIOPSY - BX-GE JUNCTION C. ESOPHAG US, NOS - BX-LOWER ESOPHAGUS COMMENT DISCLAIMER This immunohist ochemical test was developed and its preference characteristics determined by [facility], Immunohistochemical Section. It may not have been cleared or approved by the U.S. Food and Drug A dministration. The FDA has determined that such clearance or approval is not n ecessary. This test is used for clinical purposes. It should not be regarded a s investigational or for research. This laboratory is certified under the [facility] Laboratory Improvement Amendment of 1988 (CLIA) as qualified to perform h igh complexity clinical laboratory testing. FINAL DIAGNOSIS A. STOMA CH, ANTRUM, BIOPSY: - CHRONIC INACTIVE GASTRITIS - NEGATIVE FOR HELICOBACTER PYLORI (DIFF QUIK STAIN AND HELICOBACTER PYLORI IMMUNOSTAIN, EACH PERFORMED W ITH ADEQUATE CONTROL) - NEGATIVE FOR INTESTINAL METAPLASIA B. GE JUNCTI ON, BIOPSY: - SQUAMOUS MUCOSA WITH REFLUX ESOPHAGITIS CHANGES - COLUMNAR AND SQUAMOCOLUMNAR JUNCTION MUCOSA WITH MODERATE CHRONIC INFLAMMATION AND MILD RE ACTIVE CHANGE - NEGATIVE FOR INTESTINAL METAPLASIA C. LOWER ESOPHAGUS, BIOPSY: - SQUAMOUS MUCOSA WITH REFLUX ESOPHAGITIS CHANGES - NO COLUMNAR MUCO SA IDENTIFIED CONTINUED ON NEXT PAGE - RUN DATE: 01/01/20 [facility] *LIVE* PAGE 2 RUN TIME: 1445 Specimen Inquiry RUN USER: INTERFACE SPEC #: [id number] PATIENT: ESTIVEN SIMON TTE #[id number] (Continued) GROSS DESCRIPTIO N Patient history: Reflux A. Specimen labeled "antrum biopsy". Rece ived are four biopsied pieces of wall-butts mucosa ranging from 4 to 7 mm in gre atest dimension. Submitted as A. B. Specimen labeled "GE junction biopsy ". Received are multiple biopsied pieces of pale wall mucosa ranging from 3 to 5 mm in diameter. Submitted as B. C. Specimen labeled "lower esophagus biopsy". Received are three biopsied pieces of butts-white mucosa each measur es 3 mm in diameter. Submitted as C. Signed SIGNATURE ON FILE Dung Camacho Anjum 01/01/20 1445 END OF REPORT Novel Coronavirus 13:26:00* Test Item Value Reference Range Interpretation Comments Novel Coronavirus 2019 Inhouse (test code = [id number]) Negative Negative Positive results are indicative of the presence edYVDV-OhI-6 RNA, clinical correlation with patient historyand other diagnostic information is necessary to determinepatient infection status. Positive results do not rule outbacterial infection or co-infection with other viruses. Negative results do not preclude SARS-CoV-2 infection andshould not be used as the sole basis for patient managementdecisions. Negative results must be combined with otherclinical observations, patient history, and epidemiologicalinformation. Detection of SARS-CoV-2 RNA may be affected bysample collection methods, storage conditions, and/or stageof infection. Viral RNA mutations, vaccinations, antiviraltherapeutics, antibiotics, chemotherapeutic orimmunosuppressant drugs have not been evaluated for effectson detection. Results are for the identification of SARS-CoV-2 RNA usingthe [employer] M2000 System under the FDA Emergency UseAuthorization. The testing is performed by personneltrained in the procedures for the Long M2000 moleculardiagnostic SARS-CoV-2 assay in vitro. Testing Criteria: Preprocedure ScreeningCoronavirus 2019 nCoV Bedside 2019-12-29 11:20:00* Test Item Value Reference Range Interpretation Comments Coronavirus 2019 nCoV Bedside (test code = [id number]) Negative Negative This test had not been FDA cleared or approved; This testhas been authorized by FDA under an EUA for use byauthorized laboratories only for the detection of nucleicacid from SARS-CoV-2, not for any other viruses orpathogens; and this test is only authorized for the durationof the declaration that circumstances exist justifying theauthorization of emergency use of in-vitro diagnostic testsfor detection and/or diagnosis of COVID-19 under Njvqvfg448(b)(1) of the Act, 21 U.S.C. 360bbb-3(b)(1), unless theauthorization is terminated or revoked sooner. Emergent procedure? [id number] 10:34:00* Test Item Value Reference Range Interpretation Comments GLUBED (test code = GLUBED) 94 mg/dL 65-99 N Tissue [id number] 10:34:00* Test Item Value Reference Range Interpretation Comments Case Report (test code = 104) Surgical Pathology Repor t Case: [id number] Authorizing Provider: David Cheng MD Collected: 09/23/2019 1104 Ordering Location: [facility] Endoscopy Received: 09/23/2019 1459 Services Pathologist: Sukumar Whyte MD Specimens: A) - Polyp, Colon - Sigmoid, Sigmoid Colon Polyp with Cold Snare B) - Biopsy, Gastroesophageal Junction, GE Junction Bx DIAGNOSIS (test code = 3220) [id number]SbQokncJUnOMfumoEgJWsbm8JcT7UlSaEbBHzqspMtZMLc UlnobjqhYLPbLGZ6brJsDAPkEXcnPXTtDXqsZw0mwFEnfVqyZdEuHQJmz0hjoiDWzgloyEl8y1mnQXOm AxF7fJXxCPvlU1pcvyOrdMJoFNPkCEg8gF19GBGyiZ 7uyNWjMKejuuQbNMsqvdYqwtAfRmn5SBXjF4diHTJtNVOoI3ApEI5qESStHip3XOQ3IVZ4mJxzj9L5zE GrqAVzoLdrKqWdDaGrPSZEc8NtICt4jUfnI3CtEPKqMgR8qCEyWADxJWbkCUSeJFIkksW4lW19OXssmr H3mLFtu5Krc78jb962aJ6orAYxXKE8XZSkPVYntCFt CAPoLJX2ROYmuCBtL8z3YhVdwOJiF7W2WrNjrKOuX9S0NfOwzQJaS1P1FkRjwIPmEADflMOiKc4orLSw cQDwqa7bwh76SFI0r1PvkIfoZWO9XKA5NwMtCf1kmLXcJORfDW1tCgKhzLDpAKCfno57pNgkJExithMu qA1eWnYkOT2cxYlny43rYYAySV9djF1aji9hozXmDI ocyVNajUA6croaJLG3WRAibtUog6Zit0ckUfOfzoRxT5ouP9XzTQClOOFaMOVoNcFgxbQtc1Hut9BidW WjxZx4j1ikLEInWRYqdVxfr3vuSCI3VIBbH7N5oMRqd4jbDNkzQJNidPN2slxeXHwjMAFhakZ2oodzMX fzFFRzoXO1exiaXHitJYCzNkD7mprfHNueFFFrSVA1 BUvlt066WWU3YYwmSyfzOUojJCResrQmgyZhcXdnXDDvSIMqZMhmCTZyPIlkCWMtJQXyGoSmiYhaxXsz fL6bIcVnErDmPSnxnCLsllqbUQougyPmRTCsJUPBCI4OTEXFUZaEO4pYPFFOTLwPJWKKGV4KX9q3XIKo vkLaYBNrJ78VH17ORrYDCEASS5VeE4sKXFQSKkLJJH nCGOXQC9FAOWAHBHXHYz8TPKlWBMSSMs5RMJNMAVQCWRKditfkNMSkCTEpAZxjMCAfMURdGgYsrPbeuZ 0iZxHhQsRuOIEdPWKdEBihVHArTDLdDnSkaWKkZwQhBcZdoQedaRudYIveEgLrLIKzFWmhM8ozQiDwF2 OwMMPzXlYtsPFhS1zhAJEigJjjfZ3tIdFhWrWfKPXo GUJpTInaWQZhWTPzWjHoxCByBzIeWbNueNnxqLjeAFhvAqJgFYZpWKxlL2uaLxJyL3RuQUFsVoJrqJKc S9zoMaBYCZVWNgHpYv4YEAEMP8USZLWKMC4dKMNDKOtIDT9ZJWrhqLOirkzvBKqzeuJaJIGmdiaqxMug bGFpblxmMFxmczIwXHBsYWluXGYxXGZzMjBccGFyIE WgDFsMZ6JRU2UZL2TNGHdXKIwaWbJGD0KCO39yUFBGI9QQUMzodATcIZXdipNod1CpUOCpLLS0TLpxBZ odeGYoWGRfmCyin0hnA4CsxUHkREKwLPbjTEYoYYYmGnBxlWzhjS6fYuXzZpKxVTqhVO3sXHUhU1unoT YuBPNgKPAcU0smYjYvhO0pgCerNQzmWxFgQqQzIHsj eAQqnYLiZRCxpCzwkT6kEfIiJfZbBTUmEVZiWIzzEHQnOWAlCdJgpIAnOrGqMxHgyTxhkObhCLlsYxOl ZHKxDOwtM2qdUbZbS3HbXBGoIeJdqECjE5pqVcKRZ8LXQ75YKCUJIFKCW4RjI3gZAFBzmHotdW8nNzOr CpZxDPHEWJFQNXyxLNEYGHaBQ3nNFPNowAUwOJKpFM GGRHrBGAdNJWMCA7McFLGyGYumAOZsNIMhFeGfxELxCjUsEjGuaPssbQydKPfkNqAzJQZhVOzxR2paPl XiM1EdTLVvEgZmlOZhD2bkOJ9XBATONQ1VYSMKBUWSNTfKA8fSEORgXEydRDQoRKGtTzQhGpDoiZrggM 9zJwEeWwSaWLqdAL5aLMCkE7qyoAChUKJeXAGjF2gf TtVukJ3vsBagQZanUwUpLmZbOFtshAFqwOJSMOGLAKXED9GtWIHZSSwBE8FIQFEqfckvGXEqEJAhwPPf YSH2lGVmzwPnqFjsxCwxnY4kDbUyImGhHRbugRBpqsljNCsvsxXdQCKqdNtudA4mAtNdFqLnNVrbIZ8y MEFoQ7dviQLrHAJaLFYeN3rpLkGphU2lpVhkFTshZq XgYsDcDVuixJIwtFEsVGztaTTjosuyAEzstfOwRATexPevgI3iKdBsBeDhIRhwES0oFYYkN5mquIVeXB HxEJJkR4eiVeUzkI4taQnfLQgoFxEmRhCsWQwdtUAgrKUICMjUYBrCEICIB6PaKJvGPKbXF8bYIaREUJ bIQ01OWrBDUXLwQGmuTJCrEVEeGvHggSRmPKLslk84 KOD0UjCvj1V3GNR6GNPcZNTho1vjSZPmgVGhZqTtOdHaNlKgLxmjiNKvBCKfAgWuq9lde890bNFlq9gv XPBrNsR1cROrMLJkdZJdJ858KMNyGRxqg7fbo2NrSGLieVVby4Y9IUAHzujmdKx1jFegF96rg1B1Kjxl B1beKPIcYDZpQ8MpYH1rLAKwEnu1BMD1MLU1BTFrOT AfE1DuSP5gTGItyPOkTZp6c1revRfxGEEfZNU7z1qgHUdyhvQxRE8ajg0ixWh0u1jylgAuLYCeGFXfvK YCLGSnL6PwtOjfPv1epPd5cZmiEpzpVBY6Hiu9HW9joc19dys9oDeoMGPdngazWmR5PCjxKJXfoatdAF x1BAnhYZLcyQQ9ZXHmqTThR8AdCZOuMF1sgge4RMK8 FVeaLBLeMvL7FJNdrCVkYNMzaGxzFQjva481WXH4NnNtXF0xV1Gfq5L9dC1rdUEcWXPqaLOoZjVeDDZc qd2diRCyWIqhb9IrGMV2dwM4xSEnkHTbFTXwPeR9SZxpBD4pdf94GKQzDRC9si5vyIZthJmjyxLqyUJd EAyjZ0TqFQFpk345ATDxO4JuXTNvp8F7zmWcVkShZT LluBQ0bvI2XAZjCO3vaqupm6zjZHvgYUmlRMUrkmC6aqO9CVAnoAVoT2GooC6fFVDxPG3otbcma5mqWF S9SOadZTJtWXI3AhGaQLApw7Vemiy7FaUwq7DkjJKgBMqwA63bi449MCFhsxJaQ6hjhVCgdxnugSLjoz cfNFtlyrF5XBYhNMwepixbJJPoUVtpB7hvPuFbRQWm aJegNKqft7SeGFTiAQCyQzFmxLSqLYWjYis4GDHopHGkXUTnExHaZ9nyujtyUgOOHEMge3wkG6ngoHAD zGUdO4QdFXuhiaLiDHusVCkjFMX3TKT9Tl63RcQ8KJZnau53 CPT Code(s) (test code = 3357) w6rofXSqJHThbVOhRlLgIMOjXKRsp3aiXQDpvLYkZyIwEpRfTnFvIchqgRZdCNHqWjJcz9jor228xSLo g0txEXQsLxY3qHOfWSEjrFUvY037j2qii8qyrfCjyRL9WVFuHUI8YCltfdHeccC1NNjacKXhEgB2EBlq liTvQYhnhzHpxpHmKsg2IFKuK114ZXF3uKfkw4syKE W2BNBxZJIgZeIdJn4xzUUmL888MYJcSBFZMYQypTl3OHHxnzHeqgMcqXOTi568S018b6gwBUIsqeUzrB xHtlvwv5roO949HSDcuHJxzeKhRcLbEJIboJGdoBO3XYFoIJ6rhextOlZkJW7xbqnyBfHuLX5iexh9Dm DtYS2wvmhcLzAeGHghOGSkqqcsIQKhg2EgbfnhEA6o L2Bzz3A9iT2ybBZhRAPcyQZdUfAqDFHvuz1oxCYsSQsva9ViNNI2bsZ7fMAccHKgUSAkKF37Svffz8Kt KvdaZMV1HGVfluTdr2Ugn5ksDzXvvpXcN4qrY6VbMZIzBZQoQPWfNkOihwLdx3Mpj0JvvFHnaXj9w7rp TUHoAFBpzPqti8qsEUA7EVLxG6B6aDLmk4hlLFyuCP YsbTZ9akbjHNqfQYWnffW8qqhpMRkpETQeqOA9wxqgYRvwBDTrEeX7jbelSFyhXXWfDZM8SKkos995VE H3IUtgVptuUWabRDJyhdNsbeLalWjbWZPuDKGnNWfrDNDlZZeuVGAsEPNiPfWuoIjtkMrxkD8fFdVpBt FrVItcHW7gJNVnY5mdiVZbFBEiJEShA4lpHnPbgG2isNsoPPvwygSuOCk2QqM1GSRufIKbsY== CLINICAL HISTORY (test code = 3356) o5arnTHaJCAvcPLgUsVnJTWgDJByd4kwGIMfqHVmXvHsNsGdEuHsIlllkOYmZVYgUeGyg5pkj717vVOx v8hqLEOhTaE3tUOyFCBajUPoT513a2gwq4ymbnDqnGQ2YMQzKBP9QRrcupQpczU1RXkkgHZvHwB7CTad moGoDVgybiGrgrLuEwk2LVEaK543RDA7iCgcm5nkFM F2CHWnILPtSxCyMl5yjICjQ325TUXiQVZNEFDydId4HVKakiWlfhVxzWZEf809J005a1hsSMCrexWqpA jGefiwg8bxS948TSUpxPSuowXtBsMkUZDxcWLcgNO2WOEfKM1znjpdYyXpHG0ghtqgHjJoDB4wgpv1Ne BbSG8yllvbHmRmJShoRZPmmgoqPKBbo5IeblpfSZ9w Z1Plz0H1fF4thTZvWDOlmSRiYiTiQEOhth9buEMnCZsdz4VrRSK3mgX1pUXlaKLqLRUtBI25Dchpe1Ze HftnGWF9JEKisiWoy9Qcc1aoHcUsvmSwN6qbM1YtGWLuGFLtVVSuAnQzssSrt3Vef6EkxAYdtTw3x3ul MDQtKABuvHyun6veDQW7ECIiD1Y7qZRir6coSWhjLI MdpNG3ueruIGvrLYLvvxJ9gperNRvtCDItjOJ7fkizIXfeRYEdOvR6rdgsBBykLVCyRDT0TQmiy222NF W6INhnUulyHOfzFJVpgyRgohKinFlpXXTjNIDfYKzkRYAqSPrlIGFfERHtNtGtqPatuXybuH0oBnYaSk NlPSdaVP9aEFYkM1dtmLKwHPXmHTPnI7cqCeFxsV3n aOjaNOqxjzHnWGlio6Xwu4Gfq4QlQVwgMYxuhnLtfJP1UNUuu1Bza2IcLTTteF2cCFTcstHinlRpD0Qy LN1rgajdlSDpcH== SPECIMEN SOURCE (test code = 3377) h4floQEvRGJmhUXhUlSpKCBhMUAgq9brGFQfaRRnLvZwQsTgMyKcSgdsyXXgOJGyUdDrh5suz008bPSn z8jdRSOtCgL6bHLcLEUojBEwS095k6wys0igxyAulEP4AUWmWPO8ARclmfWpahG1XXrssXGoNsQ4TIti cmSvVBrpqbOfyqCdFpc9PVRkM951DNF7pNtou6irYD Q2DVNgONIhIcHeLr6jaBGkH605VEZxBYNSQHFjwPb3ZHTidjCqtxKihBNFq795E311a2cjAAAaiaEghY aSgalzw2xxU166WMZzwKUiwkKkQjPfDPUaoDMicQW2IWApME1ooltzFaYtDB1qsufdKvWvQH3emsc2Kr MmUS0dtbihBqAuCYefLEKizmduMAXkq9LbowniWX6s E7Dym7C7pO9wiTBvBIHhkWKqYgRqZGUrwp0cwIYgYJiol5FpOUG7ekO8sDXslJEzARZcUL06Ekcsl1Tv IpmhRUN9POTphoBac8Ogs7blHaWrbzDvV5hpN3UgBZSfFUAfCEMbGrJcmjEil0Ixq6MlbHXgsCl8e7zl FZSdURPyhJltj5bvOCQ9ESRtT0D5jTOpz2lqOPizGJ FmnCP3omxrOTmoIIGrsvI8upixDMelGCIawAU5nlifMAeuKBXuJjE4itttZLwoGFSeDZX9IIfju664SF T2WUrxSnleYRumJCJkloTcyqMziRayUYUnGODaARhsYIHcTPpbHIYpRRVjHeXblKpcqStlyD2bYlYwVd BoPDdsHE1fPDRrG4zskXObMGSfNFHoT5dnYvTftQ5p hWolXRmcorExQMCzKQMcV46ugNKeW43pt97ymG1eiHXoZMUaVUwIBAi5kkH5lH6eRWJln5YghNAngJMp fQ== GROSS DESCRIPTION (test code = 3366) x9yyuYVaQDJomXAmPbKePKUnBSMiu4xhTRMrvSXkZnNnViAzVbLqIisphFVxJXGnMpHxa7por283xEKr t5ejBFOtJyM0bQDoHIClfARcE215GFIlPXzyb9fll2JyOMDvsEVef2N7ZFEZddvgtQe9tOpiB72qk3C0 LzdnV0alBRGfTXTyC2MgOL3zDLJeRzq5FDV6QPZ8VU TpSJBuS3WaFK1yGHVwnBBnWJu0x8xuaYxoRFDlFMM3c3dsLAbhzeJtBE6oil3zgSs6u4htrpBnIWZgSF HcwZTIVTYsF3FwlLtdMy8pgBx7zJzeEleiEAS8Zds4NF1tje54agz1vQeiIWFqwwarEfV8DJtuRCHwoy mjSXu9YHnpAIPviUicIUmoLZCmvwthWUuaFLThaFsx AMgfXIEeBjyhWGesUAZmXYK0OPayr305FOY9SNkwm8axm1fhhBYeXcb6DANyGlSzBiefUYrov4Bad2qo SMMify6uBCV4aSWmlResj6W2zRFzLVCdfGHrazNkASUzSxF2BIpoEM2skc02DGRfUZH2dy5mwRJwdMbz eqOisIYtXCeaY7JzNGAlx818VRLoR1AmNMFpe5S7bm KvLgKcKHPhgDR9mqO2EEDsIAs9jGTvleA1jqSggBQmE0mboZ65XkUveTSsW5SucW64ScNsvSAgP5ZvaY 47JgCmdTJtZ4IjdZ17EhLjwWWnNNOyeNStNr4geVYucADxh8CngIIuVFoyI56gb264OELnrvGbB3cbbF QllbjmvYFqbszyHNzlxwB0EFUzFPEfWDaqHUPhTACt VtWfnDTkIeCdZtZgpDhfmOodLWdpZrPzHXOuFPyoC6uqLwLmJuEwYRKCjSVmF1EeYMCxgeGmJHDalEIf TDMvkzW3x63nzVOslSXwzMPqGBhkXYD0vRJqPJPkVTMnLSTkUE75I7YiwoVmUPSaodOiANPuWHBlbQ7i JY77rSDicd3ouTCfESQwoxJJVdWIFICfvGVdLQZtwx Mgl1KoLLdvbpCoYHXztPMxDVTclVwww0alTGFzpG0rQDNkoPdhAbHdjaVhFWGtUGJ4VCOwWyU7PQRaGi DwaZqmr0Hbx6pfXJbklMElCBAfnwgnYTDxyRphe8czWIXgy2D0IXumg4fvN7jolSUvd6TapTz7mLQyZS ofDLEcuT8suD1rX2Jtt2A1xJQwPNFtNIHurmhaCIQy Lq2jIqTzZQy9FTDkdN8oLt4toTRnzV4mgEZoOBcvOTQjP5YgeRBxKGGznOtoX6VvsSDdwR8bdXflbmHg aY9cc8suEYKuENZ5j64erJEmSVHqpblauJEdGTe2uOXgKOWzo5B5DLTtYKTjyVKhRHVajGVoqxitIS6x CINiiHTgivNkwpQlrOKvfKHagK9jkrOsz31lKNdjuA HnNIJeNYJpvQTogOT6AREblA5zkI84raTfyfHpDQDxDJH1BBTJYC0qXCllEUjtoYDpYKAvqmriMYE1 MICROSCOPIC DESCRIPTION (test code = 3371) m4bodQYdGGVyhQUoOhQpOSRpGVPhu8jaRFMwhAXqRpXoGnCcKbEcTxnqfMMgQFReCwOxm7tdn773wRWf m6skXWJiQeL5yOYfDHKwcWUzV266NVHhFZbgh3jci8YlYZCkiRNjx5N0TIZYrlomcRw9mUfzC28yi0B4 ZfwhH1onGMCgRAmpEVQcRQdnjJRxWYO1RUMvHXI5DS gwuyAphhQ7QBnztCCnBeZ6DXi5y6oqnCxqIAXlLCX7m7ehLSvwsyFbPQ6uvm6osTj9n7hnqnOhGOYrHE LpfUIAMERwT9PrrDndQq3fvUw1uMsySiihQXS5Wzc4CD5zyl57icw5lKolEPGrdlmkNsX2TVtfRPDqhx uyTJv3CUpgXKOboEkaAQfrHZSluzlrMDlrVPOhyIzr WClfJDUmCzrtVLkiANFoFRM8MIlla133UWH9ATnoo7dnx7buuDHfSog6DRHyGhYyRodlQKucn4Uok3mg EGZxmy8fRDD5hHSrsGtot1M6yPPeSRQqrPDdcvUtEARbxu77oRVccBVwuNJiqb4kwmTiwKHcdMKkKPX5 hVNpthEnOGErzVEbMVAzBI9clPDuAUXyxI7kisieCV HpDeUdpneaKWCwtHlrqsPeTp8nbZjjZJK2OBbgX6vxmQ2iQhX8AQqvP6bdfI5jIQf6WGjhhIH7TIGiyQ 7vRG1xbznbe3dpQlEvIT0buumjg8klNtAfGD9gssp4o9tvBzRxWX0vcbwvv4ouWjOdLCrcDFIqgebxFT Hpw9MryrujDEKfb5TkN2ZgqAmhW96xbHwfO30zUWHk oMlkmQ6nmZmbiQ5mVjNyLtMmGWpcaEsovGWjlidiUBngdoZvREPlOTtaKRNeLGFpBbIzBWGwQt5plMTy LlxwYXJccGFyfQ== [facility] [id number] 10:34:00Surgical Pathology Report Case: [id number] Authorizing Provider: David Cheng MD Collected: 09/23/2019 1104 Ordering Location: [facility] Endoscopy Received: 09/23/2019 1450 Services Pathologist: Sukumar Whyte MD Specimens: A) - Polyp, Colon - Sigmoid, Sigmoid Colon Polyp with Cold Snare B) - Biopsy, Gastroesophageal Junction, GE Junction Bx A. COLON, SIGMOID POLYP, BIOPSY: - COLONIC MUCOSA WITH NO SIGNIFICANT DIAGNOSTIC ABNORMALITY - NEGATIVE FOR DYSP LASIA/ MALIGNANCYB. GASTROESOPHAGEAL JUNCTION, BIOPSY: - JUNCTIONAL MUCOSA WITH REFLUX ESOPHAGITIS - NEGATIVE FOR INTESTINAL METAPLASIA/ PATHAK'S ESOPHAGUS - NEGATIVE FOR DYSPLASIA/ MALIGNANCY Signing Pathologist Direct Phone Line: [phone] signed by Sukumar Whyte MD on 09/29/2019 at 1 0:34 [id number] reflux disease, colon cancer screeningA. Sigmoid colon polyp. B. GE junction biopsy The case is received in two parts labeled wit h the patient's name and accession number.A. Received in formalin labeled "sigmo id colon polyp" is a 0.4 x 0.3 x 0.2 cm, sessile, wall-pink, polypoid tissue, whi ch is submitted in toto in cassette A1.B. Received in formalin labeled "gastroes ophageal junction biopsy" are two wall-pink irregular tissues each measuring 0.3 cm in greatest dimension, which are submitted in toto in cassette B1. JIMY/Charlotte luciano.POC-Glucose [id number] 10:26:00* Test Item Value Reference Range Interpretation Comments POC-Glucose Meter (test code = 1538) 77 mg/dL 70-110 : TESTED AT [facility] [address] [facility], [address]: Beet Topper/Seat Builder ID = [id number] for MICHAELA RAMIREZ Lab Interpretation (test code = 91133-4) [facility] [id number] 10:26:00* Test Item Value Reference Range Interpretation Comments POC-GLUCOSE METER (BEAKER) (test code = 1538) 77 mg/dL 70-110 : TESTED AT [facility] [address] [facility], [address]: Beet Topper/Seat Builder ID = [id number] for MICHAELA RAMIREZ ECG 12 [id number] 14:31:45* Test Item Value Reference Range Interpretation Comments Ventricular rate (test code = 253) 54 Atrial rate (test code = 255) 54 KS interval (test code = 266) 136 QRSD interval (test code = 260) 88 QT interval (test code = 264) 470 QTC interval (test code = 265) 445 P axis 1 (test code = 267) 43 QRS axis 1 (test code = 268) -1 T wave axis (test code = 270) 40 EKG impression (test code = 273) Sinus bradycardia-Low voltage QRS-Cannot rule out Anterior infarct , age undetermined-Abnormal ECG-In automated comparison with ECG of 09-AUG-2019 22:32,-Minimal criteria for Anterior infarct are now pr esent- [facility] Pe [id number] 14:35:22Hm Interface, Radiology Results 08/12/2019 2:38 PM CSTEXAMINATION:CT ANGIOGRAM PE CHESTCLINICAL HISTORY: elevated d-dimerTECHNIQUE:CT angiographic images of the chest were obtained during intravenous administration of iodinated contrast. Computerized reformatted images and 3-D MIP images were also obtained and archived (CT pulmonary embolus protocol). Approximately 100 cc of Visipaque [address] scan performed using radiation dose reduction techniques. Te chnical factors are evaluated and adjusted to ensure appropriate moderation of e xposure. Automated dose management technology is applied to adjust the radiation dose to minimize expose while achieving a diagnostic quality image.COMPARISON: None.FINDINGS:The main pulmonary artery, right pulmonary artery and left pulmona ry artery as well as their visualized segmental and subsegmental branches demons trate no evidence of pulmonary embolism. The pulmonary arteries are normal in ca liber.There is no evidence of aortic aneurysm or dissection.No mediastinum, gregg r or axillary pathologic adenopathy is seen.The heart is normal in caliber. No p ericardial effusion is seen.No consolidation or pleural effusion is seen. There is no evidence of pneumothorax. No pulmonary nodule or mass is present.Bilateral renal cysts are noted. Small amount of gallbladder sludge is noted. The image p ortion of the abdomen viscera is otherwise unremarkable.IMPRESSION:No CTA eviden ce of pulmonary embolism.No CTA evidence of aortic aneurysm or dissection.No CT evidence of acute cardiopulmonary process or pneumonia.[id number]-11 14:22:04* Test Item Value Reference Range Interpretation Comments POC glucose (test code = 35069-0) 92 mg/dL 65-100 Arturo Jones, [id number] 14:18:22* Test Item Value Reference Range Interpretation Comments T3, free (test code = 5404-9) 2.6 pg/mL 2.4-4.2 REFERENCE INTERVAL: Triiodothyronine, Free (Free T3)Access complete set of age- and/or gender- specific reference intervals for this test in the interspireSubmit Laboratory Test Directory ([employer]).Performed by [email or web address],[address] [facility], [facility] [place] [address] enw.[employer], Juan Miguel Chavez MD, Lab. Director Arturo Mortensen carotid [id number] 14:07:17Hm Interface, Radiology Results - 08/12/2019 2:10 PM CSTExamination: US CAROTID DUPLEX BILATERALCLINICAL HISTORY: syncopeTECHNIQUE: Examination includes full duplex Doppler scan (real-time B mode grayscale, Doppler spectral analysis, Doppler color flow imaging) of the common carotid, internal carotid, external carotid, and vertebral arteries. Velocity parameters are based upon studies using distal internal carotid artery diameter as a denominator for stenosis calcul ation.COMPARISON: None.IMPRESSION:1.Mild bilateral intimal wall thickening of th e visualized carotid arteries. No hemodynamically significant stenosis within ei ther internal carotid artery, with the peak systolic velocities within the right and left internal carotid arteries measuring 83.6 cm/s and 86.6 cm/s, respectiv pedro. The peak systolic velocities within the right and left common carotid arter ies measure 95.1 cm/s and 118.8 cm/s, respectively.2.The right and left vertebra l arteries are patent and demonstrate normal antegrade flow.[id number] Arturo HernandezKhgjjkalhR-[id number] 11:08:06* Test Item Value Reference Range Interpretation Comments D-dimer (test code = 50623-1) 1.01 0.00- 0.40 ug/mL FEU H Units are ug/ml Fibrinogen Equivalent Unit.When combined with low clinical probability, D-dimer results of less than 0.5 ug/ml FEU have a good negative predictive value in excluding PE or DVT. For D-dimer results greater than 0.5 ug/ml FEU further testing is indicated if PE or DVT is suspected clinically.Elevated D-dimer results have been reported in DVT, PE, and DIC cases and may indicate the pre sence of a clot. D-dimer results may be elevated due to old age, , inflammatory diseases, trauma, post-operative states, sepsis, and malignancies. Lab Interpretation (test code = 52900-7) [facility]normal [facility] and 3D if [id number] 07:03:20* Test Item Value Reference Range Interpretation Comments Velocity Ratio (V1/V2) (test code = 4689) 0.74 m/s IVS,d (test code = 9449059973) 0.98 cm EF (test code = 0256704268) 67.75 % Ascending aorta (test code = 2512877225) 3.45 cm LVPWD,d (test code = 3966759933) 0.99 cm AoV Mean PG (test code = 9353870111) 6.00 mmHg AV LVOT peak gradient (test code = 6972681855) 6.37 mmHg MV valve area p 1/2 method (test code = 5064286668) 3.43 cm2 PV Pk Grad (test code = 2575226026) 2.69 mmHg E/A ratio (test code = 5891354017) 0.97 E wave decelartion time (test code = 2239555558) 194.54 msec IVRT (test code = 3644256525) 77.07 msec LVOT Diam,S (test code = 3986597404) 2.11 cm LVOT area (test code = 2986851818) 3.49 cm2 LVOT Vmax (test code = 3251024691) 1.27 m/s LVOT VTI (test code = 6959308715) 0.31 m AoV Peak PG (test code = 6046428086) 11.62 mmHg MV Peak E Kofi (test code = 9933922797) 0.72 m/s MV stenosis pressure 1/2 time (test code = 8436900254) 64.17 ms MV Peak A Kofi (test code = 0489102273) 0.74 m/s BSA (test code = 1779894494) 1.93 m2 Ao Root Diameter (test code = 3018940370) 3.00 cm AoV Area, Vmax (test code = 2334604195) 2.58 cm2 AoV Area, VTI (test code = 5805681648) 2.87 cm2 AoV Vmax (test code = 4378719865) 1.71 m/s BSA Valero (test code = 9307610558) 2.06 m2 BSA [place] (test code = 7367520784) 2.04 m2 IVS/LVPW,2D (test code = 0014314398) 0.99 Left Atrium Dimension Anterior (test code = 6187548274) 4.66 cm LV,d (test code = 6255183642) 5.09 cm LV,s (test code = 1040211502) 3.16 cm PV VMAX (test code = 5182761094) 0.82 m/s RVSP (TR) (test code = 7994212131) 43.02 mmHg TR Vpeak (test code = 8310159997) 2.87 mm/s BMI (test code = 9283041528) 35.07 kg/m2 MV E A ratio (test code = 5865644003) 0.93 TR pk grad (test code = 6021581282) 31.89 mmHg AoV area i VTI BSA Rollins (test code = 1361088743) 1.49 cm2/m2 RVSP (test code = 8379882056) 43.02 mmHg Ao Root Diameter (test code = 7357367521) 3.00 cm LV SYS VOL (test code = 6621280684) 39.73 ml LV STUBBS VOL (test code = 6615069060) 123.18 ml LA area s A4C (test code = 0772323583) 23.02 cm2 LA Vol MOD A4C (test code = 4673944137) 75.26 ml LV SI Teich 2D (test code = 9620532162) 43.34 ml/m2 LV SV Teich 2D (test code = 7971726028) 83.45 ml LV Vol s Teich PSAX (test code = 6908096955) 39.73 ml LVOT SI (test code = 7612626485) 56.99 ml/m2 AoV Vmn (test code = 5008023596) 1.14 IVS s 2D (test code = 0979900078) 1.50 LV FS Cube 2D (test code = 7524625459) 37.90 LV FS Teich 2D (test code = 8282262937) 37.90 AoV VTI (test code = 6178099242) 0.39 m LV EF,2D (test code = 6580037313) 76.06 % MV AE ratio (test code = 5531785136) 1.08 LVOT Vmn (test code = 8125739016) 0.90 Pt Size (test code = 7767715293) 160.02 Pt Wt (test code = 4540403199) 89.81 Aov area Vmn (test code = 7105567380) 2.86 cm2 LA A_P score P (test code = 0019786949) 3.10 LVOT mean grad (test code = 6777051398) 3.69 mmHg MAX Pred HR (test code = 0527140626) 161.26 85 of MPHR (test code = 2070862919) 137.07 AoV area I VMN bsa (test code = 8111175673) 1.49 cm2/m2 Calc MPHR (test code = 4834936312) 161.26 bpm IVS pct thck PLAX (test code = 1262691936) 53.70 % LV SI Cube 2D (test code = 2005414276) 52.05 ml/m2 LV SV Cube 2D (test code = 8142741761) 100.22 ml LV vol d cube 2D (test code = 3032350917) 131.78 ml LV vol s cube 2D (test code = 6965571512) 31.55 ml LVPW pct thck PLAX (test code = 5585919233) 41.63 % LVPW s PLAX (test code = 8717704507) 1.40 cm MV Decel slope (test code = 5671809245) 3.69 m/s2 Pred Exer Dur R1 (test code = 0438652271) 8.04 Pred METS R1 (test code = 1993925250) 7.06 LENA (test code = LENA) Left ventricular systolic function is normal. Left Ventricular ejection fraction is 55 - 60%. Left atrium size is mildly dilated. Mildly elevated pulmonary artery systolic pressure. RSVP 43 [facility] natriuretic [id number] 07:37:20* Test Item Value Reference Range Interpretation Comments BNP (test code = 15802-4) 144 pg/mL 0-100 H Lab Interpretation (test code = 15101-0) Abnormal [facility] [id number] 07:05:34* Test Item Value Reference Range Interpretation Comments TSH (test code = 3016-3) 1.03 0.27- 4.20 uIU/mL [facility] [id number] 06:58:58* Test Item Value Reference Range Interpretation Comments Sodium (test code = 2951-2) 141 135- 150 mEq/L Potassium (test code = 2823-3) 3.8 3.5- 5.0 mEq/L Chloride (test code = 5-0) 108 98- 112 mEq/L CO2 (test code = 2027-9) 22 mmol/L 24-31 L Anion gap (test code = 51463-7) 11@ANIO 7- 15 mEq/L BUN (test code = 3094-0) 22 mg/dL 7-18 H Creatinine (test code = 2160-0) 1.00 mg/dL 0.5-0.9 H Glucose (test code = 2345-7) 105 mg/dL 65-100 H Calcium (test code = 70550-5) 8.7 mg/dL 8.3-10.2 Lab Interpretation (test code = 33340-3) Abnormal [place] [facility] [id number] 06:58:36* Test Item Value Reference Range Interpretation Comments Cholesterol (test code = 2093-3) 168 mg/dL 0-199 Triglycerides (test code = 2571-8) 56 mg/dL 0-149 HDL cholesterol (test code = 2085-9) 68 mg/dL 40-9999 LDL cholesterol (test code = 2089-1) 103 mg/dL 0-99 H Result obtained by direct LDL measurement Lipid panel interpretation (test code = 21889-2) See below Total Cholesterol (mg/dL) LDL Cholesterol (mg/dL) <200 Desirable <100 Optimal 200-239 Borderline-high 100-129 Near or above optimal >=240 High 130-159 Borderline- high 160-189 High >=190 Very highHDL Cholesterol (mg/dL) Triglycerides (mg/dL) <40 Low <150 Normal >=60 High 150-199 Borderline-high 200-499 High >=500 Very high Risk Catergories that modify LDL goals.Risk Catergories LDL goal (mg/dL)CHD and CHD risk equivalent <100 (10-year risk >20%)Multiple (2+) risk factors <130 (10-year risk =<20%)0-1 risk factors <160 (<10-year risk) Defining levels of lipids in metabolic syndromeTriglycerides >=150 mg/dLHDL Cholesterol Men <40 mg/dL Women <50 mg/dL Non-HDL cholesterol is a second target for therapy in personswith high triglycerides (>=200 mg/dL) Lab Interpretation (test code = 62130-0) Abnormal [place] [facility] [id number] 06:58:36* Test Item Value Reference Range Interpretation Comments Magnesium (test code = 64619-7) 2.00 mg/dL 1.6-2.6 [place] [facility]Estimated [id number] 06:58:35* Test Item Value Reference Range Interpretation Comments Estimated GFR (test code = 5488) 62 mL/min/1.73 m2 Catergory Units InterpretationG1 >=90 Normal or highG2 60-89 Mildly ofzcnddflW2l 45-59 Mildly to moderately fxxgyuffvI7l 30-44 Moderately to severely decreasedG4 15-29 Severely decreasedG5 <15 Kidney failureThe eGFR was calculated using the Chronic Kidney Disease Epidemiology Collaboration (CKD-EPI) equation. Interpretation is based on recommendations of the National Kidney Foundation-Kidney Disease Outcomes Quality Initiative (NKF-KDOQI) published in 2014. [place] [facility] [id number] 06:49:33* Test Item Value Reference Range Interpretation Comments Hemoglobin A1C (test code = 82979-2) 5.6 % 4-5.6 HbA1c cutoffs for diagnosing diabetes:4.0% - 5.6% = normal5.7% - 6.4% = increased risk for diabetes (prediabetes)9>=6.5% = rbovzrpl6Itsqj for glycemic control (ADA 2016)< 7.0% Target for non adults with diabetes. More or less stringent targets may be appropriate for individual patients. <7.5% Target for Children and adolescents with type 1 diabetes. [place] [facility] with platelet and yvberjwdrwdx1167-12-68 06:39:29* Test Item Value Reference Range Interpretation Comments WBC (test code = 14719-5) 4.1 4.2- 11.0 k/uL L RBC (test code = 42194-8) 3.40 m/uL 4.04-5.86 L HGB (test code = 718-7) 11.0 g/dL 11.5-15.3 L HCT (test code = 4544-3) 33.5 % 34-45 L MCV (test code = 787-2) 98.5 fL 80-98 H MCH (test code = 785-6) 32.4 pg 27-34 MCHC (test code = 786-4) 32.8 g/dL 31.5-36.5 RDW - SD (test code = 90857-4) 45.9 fL 37-51 MPV (test code = 60121-4) 11.3 fL 7.4-10.4 H Platelet count (test code = 54141-5) 195 150- 400 k/uL Nucleated RBC (test code = 09837-0) 0.00 /100 WBC Neutrophils (test code = 59445-0) 62.6 % 36-66 Lymphocytes (test code = 56481-8) 25.6 % 24-44 Monocytes (test code = 36779-4) 10.1 % 0-6 H Eosinophils (test code = 98625-0) 1.0 % 0-6 Basophils (test code = 13264-4) 0.5 % 0-1.2 Immature granulocytes (test code = 41136-5) 0.2 % 0-1 Lab Interpretation (test code = 29976-8) Abnormal [facility]DtvsjaatrBnsmkdmb6211-43-64 21:55:34* Test Item Value Reference Range Interpretation Comments Troponin (test code = 03027-5) 0.009 ng/mL 0-0.04 [employer] changed methodology effective: 01/06/2019 at 10:00 amThe new method has a 99th percentile cutoff of 0.040 ng/mL InventergyProthrombin time with [id number] 16:34:18* Test Item Value Reference Range Interpretation Comments Prothrombin time (test code = 5902-2) 13.3 11.5- 14.5 sec INR (test code = 68066-0) 1.04 Fo r patients on anticoagulant therapy, reference ranges below:Indication: INR ValueTreatment of Venous Thrombosis, 2.0-3.0pulmonary emboli, or prophylaxisof a venous thrombosis, or systemic emboli.High dose, high risk patients 3.0-4.5with mechanical valves.NOTE: INR values over 3.0 are sometimes associated withgastrointestinal hemorrhage, especially values over 4.0. [place] MethodistPartial thromboplastin time, [id number] 16:34:18* Test Item Value Reference Range Interpretation Comments PTT (test code = 3173-2) 26.8 23.0- 36.0 sec P TT therapeutic range for unfractionated heparin is61.0-112.0 seconds which corresponds to Anti-Xa0.3-0.7 U/ml. [place] [facility]Lipase lqvcp7233-18-15 15:04:30* Test Item Value Reference Range Interpretation Comments Lipase (test code = 3040-3) 43 U/L 13-60 [place] MethodistXR Chest 2 [id number] 14:55:06Hm Interface, Radiology Results - 08/10/2019 2:58 PM CSTEXAMINATION: XR CHEST 2 VWCLINICAL HISTORY: Chest pain normal ekgCOMPARISON: August 09, 2019.FINDINGS: 1. The lungs are clear without a focal consolidation. There is no pleural effusion or pneumothorax. 2. The cardiomediastinal silhouette approaches the upper limit of normal for size. The pulmonary vascularity is within normal limits. 3. Multilevel mild thoracic spondylosis. Mild bilateral AC joint osteoarthr itis.IMPRESSION: No acute cardiopulmonary abnormality. [facility]-[id number] [place] MethodistComprehensive metabolic [id number] 14:45:20* Test Item Value Reference Range Interpretation Comments Sodium (test code = 2951-2) 142 135- 150 mEq/L Potassium (test code = 2823-3) 4.4 3.5- 5.0 mEq/L Chloride (test code = 2075-0) 107 98- 112 mEq/L CO2 (test code = 2027-9) 24 mmol/L 24-31 Anion gap (test code = 88648-0) 11@ANIO 7- 15 mEq/L BUN (test code = 3094-0) 20 mg/dL 7-18 H Creatinine (test code = 2160-0) 1.00 mg/dL 0.5-0.9 H Glucose (test code = 2345-7) 99 mg/dL 65-100 Calcium (test code = 80430-0) 8.9 mg/dL 8.3-10.2 Protein (test code = 2885-2) 7.1 g/dL 6.3-8.3 Albumin (test code = 1751-7) 3.8 g/dL 3.5-5 A/G ratio (test code = 1759-0) 1.2 0.7-3.8 Alkaline phosphatase (test code = 6768-6) 81 U/L 0-104 AST (test code = 1920-8) 19 U/L 10-35 ALT (test code = 1742-6) 11 U/L 5-50 Total bilirubin (test code = 1975-2) 0.6 mg/dL 0.2-1.2 Lab Interpretation (test code = 57904-9) Abnormal [facility] ED Preliminary Interpretation - Not an [id number] 14:04:36* Test Item Value Reference Range Interpretation Comments LENA (test code = LENA) Matt Villegas MD 08/10 5:17 [facility] [place] Interpretation - Not an OrderPerformed by: Matt Villegas MDAuthorized by: Matt Villegas MD ECG reviewed by ED Physician in the abse nce of a yield improvement engineer: yes Interpretation: Interpretation: abnormal Rate: ECG rate: 54 ECG rate assessment: bradycardic Rhythm: Rhythm: sinus bradycardia Ectopy: Ectopy: none QRS: QRS axis: Normal QRS intervals: NormalConduction: Conduction: normal T waves: T waves: non-specific Other findings: Other findings comment: Low voltage Lab Interpretation (test code = 25122-5) [facility]normal [facility]vcau[facility]liL88828-03-31 03:46:47* Test Item Value Reference Range Interpretation Comments T3 (test code = 3053-6) 77 ng/dL 80-200 L Lab Interpretation (test code = 51858-7) [facility]normal [facility] [id number] 03:46:33* Test Item Value Reference Range Interpretation Comments T4 (test code = 3026-2) 5.8 ug/dL 4.5-11.7 [place] [facility] Chest 1 Vw [id number] 23:56:34Hm Interface, Radiology Results Incoming - 08/09/2019 11:59 PM CSTExamination: XR CHEST 1 VW PORTABLEClinical History: SOBComparison: None.Technique: Single frontal view of the chest is obtained.Findings:The lungs are free of infiltrate.The heart size is normal.No pleural effusion is seen.Impression:No active cardiopulmonary disease identified.[facility]-[id number] MethodistTKia, [id number] 23:31:47* Test Item Value Reference Range Interpretation Comments T4, free (test code = 3024-7) 1.20 ng/dL 0.9-1.7 Arturo Hernandez
--- NOTE | 2020-05-06 11:33 | Emergency Department Note ---
History of Present Illnes History of Present Illness Chief Complaint: n/v/d History of Present Illness This is a 59 year old female. was doing well until 2 months ago then robbie-en-y (gastric bypass) then 1 week ago n/v/d/ intermittent fever (as high as 101) then saw in an ER in [place], tx blood work and ct abd/pelvis were all negative according to pt. then persistent /v/d and intermittent fever (last fever was 2 days ago. Historian: Patient Arrival Mode: Car History limited by: condition of the patient Drafter Cartographic Required: No Onset (how long ago): week(s) (1) Location: n/a Quality: n/a Radiation: Reports non-radiation, Reports other (no pain) Severity: moderate Onset quality: gradual (1) Duration (how long): week(s) (1) Timing of current episode: intermittent Progression: waxing and waning Chronicity: new Context: Denies recent illness, Denies recent surgery, Denies recent immobilization, Denies recent travel, Denies trauma/injury, Denies new medications, Denies hx of DVT/PE, Denies non-compliance w/ medications Relieving factors: none Exacerbating factors: none Associated symptoms: Reports nausea/vomiting Treatments prior to arrival: none Past Medical/Family History Physician Review I have reviewed the patient's past medical and family history. Any updates have been documented here. Past Medical History Recent Fever: No Clinical Suspicion of Infectio: No New/Unexplained Change in Ment: No Past Medical History: Diabetes, GERD Past Surgical History: Bariatric Surgery Other Surgery: Gastric sleeve in 2006 with revision 2019 Social History Smoking Cessation: Never Smoker Counseling Performed: No Alcohol Use: None Any Illegal Drug Use: No Physically hurt or threatened: No Other Any Pre-Existing Lines (PICC,: No Review of Systems Review of Systems Constitutional: Reports as per HPI EENTM: Reports no symptoms Cardiovascular: Reports no symptoms Respiratory: Reports no symptoms Gastrointestinal: Reports as per HPI Genitourinary: Reports no symptoms Musculoskeletal: Reports no symptoms Integumentary: Reports no symptoms Neurological: Reports no symptoms Psychological: Reports no symptoms Endocrine: Reports no symptoms Hematological/Lymphatic: Reports no symptoms Review of other systems: All other systems negative Physical Exam Related Data Allergies: Coded Allergies: ciprofloxacin (Verified Allergy, Unknown, 05/06/20) levofloxacin (Verified Allergy, Unknown, 05/06/20) morphine (Verified Allergy, Unknown, 05/06/20) nitrofurantoin (Verified Allergy, Unknown, 05/06/20) Triage Vital Signs Vital Signs Date Time Temp Pulse Resp B/P (MAP) Pulse Ox O2 Delivery O2 Flow Rate FiO2 05/06/20 10:07 98.2 87 16 166/89 97 Room Air Vital signs reviewed: Yes Physical Exam CONSTITUTIONAL Constitutional: Present well-developed, Present well-nourished HENT HENT: Present normocephalic, Present atraumatic, Present mucosae dry, Present nose normal HENT L/R: Present left ext ear normal, Present right ext ear normal EYES Eyes: Reports PERRL, Reports conjunctivae normal NECK Neck: Present ROM normal, Present supple PULMONARY Pulmonary: Present effort normal, Present breath sounds normal CARDIOVASCULAR Cardiovascular: Present regular rhythm, Present heart sounds normal, Present capillary refill normal, Present normal rate GASTROINTESTINAL Abdominal: Present soft, Present nontender, Present bowel sounds normal GENITOURINARY Genitourinary: Present exam deferred SKIN Skin: Present warm, Present dry MUSCULOSKELETAL Musculoskeletal: Present ROM normal NEUROLOGICAL Neurological: Present alert, Present oriented x 3, Present no gross motor or sensory deficits PSYCHOLOGICAL Psychological: Present mood/affect normal, Present judgement normal Results Laboratory Lab results reviewed: Yes (cbc normal bmp normal except k=3.2, lft normal, ua= =protein/specific gravity greater than 1.03) Assessment & Plan Medical Decision Making MDM see below Reassessment Reassessment time: 12:34 Reassessment symptoms resolved Assessment & Plan Final Impression: (1) Acute gastroenteritis (2) Dehydration (3) Hypokalemia Depart Disposition: HOME, SELF-CARE Last Vital Signs Date Time Temp Pulse Resp B/P (MAP) Pulse Ox O2 Delivery O2 Flow Rate FiO2 05/06/20 10:07 98.2 87 16 166/89 97 Room Air Home Meds Active Scripts Sulfamethoxazole/Trimethoprim (BACTRIM DS TABLET) 1 Each Tablet, 1 TAB PO Q12H, #20 TAB USE A PILL DIRECTOR OF OPERATIONS TO CRUSH PILLS Prov:CORBY FARIA 05/06/20 Potassium Chloride (POTASSIUM CHLORIDE) 40 Meq/15 Ml Liquid, 40 MEQ PO DAILY, #60 ML Prov:CORBY FARIA 05/06/20 Promethazine Hcl* (PHENERGAN SUPP*) 25 Mg Supp, 50 MG MA Q6H PRN for NAUSEA AND VOMITING, #30 SUPP.RECT 1 Refill TAKE AFTER ONDANSETRON IF NEED BE Prov:CORBY FARIA 05/06/20 Ondansetron (ONDANSETRON ODT) 8 Mg Tab.rapdis, 8 MG PO Q6H PRN for NAUSEA AND V OMITING, #20 TAB 1 Refill Prov:CORBY FARIA 05/06/20 Reported Medications Metformin Hcl (METFORMIN HCL) 500 Mg Tablet, 500 MG PO DAILY, #60 TAB 05/06/20 Medications in the ED Sodium Chloride 10 ml PRN PRN INJ IV SITE FLUSH; Start 05/06/20 at 10:45; Stop 06/05/20 at 10:44; Status UNV Ondansetron HCl 8 mg NOW STAT IV ; Start 05/06/20 at 10:32; Stop 05/06/20 at 10:33; Status UNV Sodium Chloride 1,000 ml @ 2,000 mls/hr Q30M STAT IV ; Start 05/06/20 at 10:32; Stop 05/06/20 at 11:01 Sodium Chloride 1,000 ml @ 2,000 mls/hr Q30M STAT IV ; Start 05/06/20 at 10:32; Stop 05/06/20 at 11:01 CORBY FARIA May 06, 2020 11:32
[2020-05-06] MEDS ORDERED: POTASSIUM CHLORIDE 20 MEQ TAB CR PO STA (11:40)
[2020-05-06] MEDS ORDERED: PIPER-TAZ 3.375 GM 50 ML IV STA (11:40)
[2020-05-06] MEDS ORDERED: POTASSIUM CHLORIDE 20 MEQ TAB CR PO ONE (11:49)
[2020-05-06] MEDS ORDERED: PIPER-TAZ 3.375 GM 50 ML ONE (11:49)
--- NOTE | 2020-05-06 11:55 | NUR ---
Pt started vomiting about 3 minutes after taking her potassium. Dr. Zaman informed and phenergan IV ordered and administered at this time. Pt understands that after all the fluids and abx are infused that she will possibly be discharged home if she is feeling better.
[2020-05-06] MEDS ORDERED: PROMETHAZINE HCL (IM) 25 MG/ML VIAL IM ONE (12:01)
[2020-05-06] MEDS ORDERED: METFORMIN HCL500 MG PO (12:10)
[2020-05-06] MEDS ORDERED: PROMETHAZINE 12.5MG/ NACL 0.9% 12.5 MG/50 ML BAG IV ONE (12:15)
[2020-05-06] MEDS ORDERED: ONDANSETRON ODT8 MG PO (12:43)
[2020-05-06] MEDS ORDERED: PHENERGAN SUPP25 MG PR (12:43)
[2020-05-06] MEDS ORDERED: BACTRIM DS TAB1 EACH PO (12:43)
[2020-05-06] MEDS ORDERED: POTASSIUM40 MEQ/15 PO (12:43)
[2020-05-06 13:07] VITALS: BP 104/66
== END 2020-05-06 13:04 | disposition home or self-care (01) ==
LOC: FSED 10:25
DX: K52.9 Noninfective gastroenteritis and colitis, unspecified (principal); E86.0 Dehydration; E87.6 Hypokalemia; E11.9 Type 2 diabetes mellitus without complications; K21.9 Gastro-esophageal reflux disease without esophagitis; Z98.84 Bariatric surgery status
CPT/HCPCS: 80048; 80076; 81003; 85025; 96374; 99283; J2405; J2543; J2550; J7030